=== PATIENT | female | born 1990 | race Caucasian/White ===

== ENCOUNTER 2019-01-12 21:23 | Emergency (ER) | payer OTHER, SELFPAY ==
[2019-01-12 21:28] VITALS: BP 130/70; PULSE 86; RESP 16; TEMP 36.7; O2SAT 100
--- NOTE | 2019-01-12 21:39 | W.ED.GENAD ---
Discharge Plan Disposition Patient Disposition: HOME Discharge Details Chief Complaint: Laceration Clinical Impression: Contusion of finger of right hand Primary Care Provider: Sharon,Local ED Provider: Wisam Nettles Home Meds and New Rx's Prescriptions: No Action buprenorphine-naloxone [Suboxone] 2-0.5 mg Film 1 film BUCCAL DAILY RF: 0 Discharge Instructions Additional Instructions: Please contact your primary care physician to arrange follow-up. Keep wound clean and dry and monitor for signs of infection including increased pain, redness, warmth, swelling or discharge. Please take ibuprofen over the counter. Take 600mg by mouth every 6 hours as needed for pain. Follow-up with orthopedics if you noticed any weakness or numbness in your thumb over the next 2 days. Return to the ER for any worsening or new concerning symptoms. Stand Alone Forms: Work Release Referrals: [facility] [Provider Group] Occupational Medicine [Outside] Medical Decision Making 28-year-old female here with injury to her right first digit, tender and swollen interphalangeal joint. Considered fracture. X-ray of the digit reviewed and interpreted by me: HPI General Mode of arrival: ambulatory. Date/Time Provider Initiated Documentation: 01/12/19 21:26. Limitations to Documentation: no limitations. Information obtained by: patient. HPI Narrative: 28-year-old female presents with chief complaint of thumb pain. Patient notes she shut a door on her thumb. This occurred just prior to arrival at work. Pain was initially severe and now thumb feels numb. No other injury. Related Data Home Medications Medication Instructions Recorded Confirmed buprenorphine-naloxone [Suboxone] 1 film BUCCAL DAILY 01/12/19 01/12/19 Allergies Allergy/AdvReac Type Severity Reaction Status Date / Time No Known Allergies Allergy Unverified 01/12/19 21:46 General Stated Complaint: Laceration KAITY: 4 Review of Systems Musculoskeletal Musculoskeletal: Reports as per HPI Neurologic Neurologic: Reports as per HPI [facility] Social History Smoking/Tobacco Use Status: Current every day Tobacco Type: cigarettes Alcohol Intake: current Alcohol Intake frequency: holidays/special occasions only Substance use type: marijuana Exam Const General: cooperative and no acute distress Skin General skin exam: ecchymosis (Minimal palmar surface first digit) Neuro General: alert, awake, oriented x3 and tone normal Extrem Right upper extremity: hand Details: normal capillary refill, neuromotor exam normal, neurosensory exam normal (Two-point discrimination intact) and tenderness Location: of the thumb Location: at the proximal phalanx and at the IP joint Course Vital Signs Vital signs: Vital Signs Temperature 36.7 C 01/12/19 21:28 Pulse 86 01/12/19 21:28 Respiratory Rate 16 01/12/19 21:28 Blood Pressure 130/70 01/12/19 21:28 Pulse Oximetry 100 01/12/19 21:28 Temperature 36.7 C 01/12/19 21:28 Temperature Source Skin 01/12/19 21:28 Pulse 86 01/12/19 21:28 Respiratory Rate 16 01/12/19 21:28 Respiratory Effort 01/12/19 21:28 Blood Pressure 130/70 01/12/19 21:28 Blood Pressure Position Sitting 01/12/19 21:28 Pulse Oximetry 100 01/12/19 21:28 Oxygen Delivery Method Room Air 01/12/19 21:28 Oxygen Flow Rate 0 01/12/19 21:28 Pain Level 0 01/12/19 21:28
--- NOTE | 2019-01-12 21:50 | DI.RAD_ITS ---
EXAM: XR THUMB RT INDICATION: pain, trauma. COMPARISON: No exams were available for comparison TECHNIQUE: 2D digital imaging was performed. FINDINGS: No fracture or dislocation is seen. IMPRESSION: Negative right thumb.
[2019-01-12] MEDS: Ibuprofen 600 MG TAB PO (22:05)
--- NOTE | 2019-01-12 22:06 | DI.VRAD_ITS ---
PROCEDURE INFORMATION: Exam: XR Right Finger(s) Exam date and time: 01/12/2019 9:54 PM Age: 28 years old Clinical history: Injury or trauma; Injury history: Thumb vs door hinge; Initial encounter; Crushing; Finger; Right; Injury date: 01/12/2019; Injury details: Caught in hinge of door TECHNIQUE: Imaging protocol: XR Right fingers. Views: Minimum 2 views. COMPARISON: No relevant prior studies available. FINDINGS: Bones/joints: There is no evidence of acute fracture.There is no evidence of malalignment or dislocation. Soft tissues: Normal. IMPRESSION: There is no evidence of acute fracture.There is no evidence of malalignment or dislocation. Dictated and Authenticated by: Flaca Pickens MD. Ordering:SHELIA Joel MD
[2019-01-12 22:47] VITALS: BP 137/72; PULSE 74; RESP 16; O2SAT 100
== END 2019-01-12 22:50 | disposition home or self-care (01) ==
PROVIDERS: Emergency Provider Student in an Organized Health Care Education/Training Program
DX: S60.011A Contusion of right thumb without damage to nail, initial encounter (principal); W23.0XXA Caught, crushed, jammed, or pinched between moving objects, initial encounter
CPT/HCPCS: 99283; 73140; 99282

== ENCOUNTER 2019-05-14 12:26 | Outpatient (REF) | payer MEDICAID, SELFPAY ==
--- NOTE | 2019-05-14 | PAPFT_PTH ---
PATIENT: Ana Ray LOC: [facility] U#:[id number] AGE/SX: 28/F ROOM: RE05/14/[address]: Dale Cespedes RN : 1990 BED: DIS: 05/14/2019 SPEC #: [id number] RECD: 05/14/19 16:48 STATUS: TRACEY RENabil #: [id number] CELINE: 05/14/19 00:[address]: Dale Cespedes DEPT: [facility] Cytology RECD BY: Sandi Lam ENTERED: 05/14/19 16:50 SP TYPE: PAPFT OT DR: Sharon Local Tissues: 1 - CX/ENDOCX FOR PAP SMEARS Procedures: PAP THIN PREP/UVM Screening HPV DNA PROBE Comments: [id number]
[2019-05-14 16:26] LABS: *AMPHETAMINES SCREEN URINE Negative (Negative); *BARBITURATES SCREEN URINE Negative (Negative); *BENZODIAZEPINES SCREEN URINE Negative (Negative); Cannabinoids THC Negative (Negative); Cocaine Screen,Urine Negative (Negative); METHADONE URINE SCREEN Negative (Negative); OPIATES URINE SCREEN Negative (Negative)
[2019-05-14 16:36] LABS: Tricyclic Antidepressants Negative (Negative)
[2019-05-15 16:00] LABS: Chlamydia Result Negative (Negative); GC Result Negative (Negative)
[2019-05-17 08:25] LABS: Buprenorphine 21.2 ng/mL
== END 2019-05-14 12:46 ==
LOC: LBN 12:26
PROVIDERS: Visit Provider Advanced Practice Midwife
DX: Z34.91 Encounter for supervision of normal pregnancy, unspecified, first trimester (principal); Z11.3 Encounter for screening for infections with a predominantly sexual mode of transmission; Z12.4 Encounter for screening for malignant neoplasm of cervix; R87.612 Low grade squamous intraepithelial lesion on cytologic smear of cervix (LGSIL)
CPT/HCPCS: 80307; 87077; 87491; 87591; 88142; 87086; 87186; 87624

== ENCOUNTER 2019-07-03 16:34 | Outpatient (REF) | payer MEDICAID, SELFPAY ==
[2019-07-03 18:31] LABS: Abs Immature Grans 0.04 k/cumm (0.0-0.09); Absolute Basophil Count 0.01 k/cumm (0.0-0.2); Absolute Eosinophil Count 0.11 k/cumm (0.0-0.7); Absolute Lymphocyte Count 1.88 k/cumm (1.2-3.4); Absolute Monocyte Count 0.63 k/cumm (0.11-0.7); Absolute Neutrophil Count 8.19 k/cumm (1.2-6.7); Basophils % 0.1; HCT 36.4 % (36.0-46.0); HGB 12.3 g/dL (12.0-15.5); Immature Grans % 0.4 %; Lymphocytes % 17.3; Mean Corp. HGB Concentration 33.8 g/dL (32.0-36.0); Mean Corpuscular Hemoglobin 29.4 pg (27.0-33.0); Mean Corpuscular Volume 86.9 fL (80-95); Mean Platelet Volume 10.7 fL (8.0-11.0); Monocytes % 5.8; Neutrophils % 75.4; Platelet Count 284 x1000/uL (130-400); RBC 4.19 m/cumm (4.00-5.20); White Blood Cell Count 10.86 k/cumm (4.4-10.8)
[2019-07-03 18:43] LABS: TSH (W/Ref FT4) 1.44 uIU/mL (0.36-3.74)
[2019-07-03 19:49] LABS: *AMPHETAMINES SCREEN URINE Negative (Negative); *BARBITURATES SCREEN URINE Negative (Negative); *BENZODIAZEPINES SCREEN URINE Negative (Negative); Cannabinoids THC Negative (Negative); Cocaine Screen,Urine Negative (Negative); METHADONE URINE SCREEN Negative (Negative); OPIATES URINE SCREEN Negative (Negative)
[2019-07-03 19:50] LABS: Tricyclic Antidepressants Negative (Negative)
[2019-07-05 09:54] LABS: HIV-1/2 Ag & Ab Screen Negative (Negative); Hepatitis B Surface Ag Negative (Negative)
[2019-07-05 10:07] LABS: Hepatitis C Ab w Rflx HCV PCR Negative (Negative)
[2019-07-05 10:21] LABS: Rubella IgG Ab (UVM) Positive (See Note); Varicella IgG Antibody Positive (See Note)
[2019-07-05 14:45] LABS: Syphilis Total Ab w/Reflex Nonreactive (Nonreactive)
[2019-07-06 10:19] LABS: Calculated age at EDD 28 years; GA used in risk estimate Dates estimate; INHIBIN 103 pg/mL; IVF Pregnancy No; Initial or repeat testing Initial testing; Insulin dependent diabetes No; Maternal Weight 154 lbs; Number of Fetuses 1; Physician Phone Number 802-748-7300; Prev Down(T21)/Trisomy Pregnan No; Prev Pregnancy w/NTD No; RECOMMENDED FOLLOW UP None.; Results Summary Normal risk; hCG, TOTAL 7.5 IU/mL; hCG, TOTAL MoM 0.36 MoM; uE3 1.68 ng/mL
[2019-07-11 17:54] LABS: Buprenorphine Negative; Norbuprenorphine Negative
== END 2019-07-03 16:54 ==
LOC: LBN 16:34
PROVIDERS: Advanced Practice Midwife; Visit Provider Advanced Practice Midwife
DX: Z34.92 Encounter for supervision of normal pregnancy, unspecified, second trimester (principal); Z3A.17 17 weeks gestation of pregnancy; F11.11 Opioid abuse, in remission; Z36.89 Encounter for other specified antenatal screening
CPT/HCPCS: 80307; 81511; 86787; 86803; 86850; 86900; 86901; 87340; 87389; 84443; 85025; 86762; 86780; 87086

== ENCOUNTER 2019-07-23 01:44 | Outpatient (CLI) | payer MEDICAID, SELFPAY ==
--- NOTE | 2019-07-23 07:15 | DI.US_ITS ---
EXAM: US OB 2-3 TRIMESTER CLINICAL HISTORY: routine pnc, z34.90 TECHNIQUE: Ultrasound performed using standard protocol. COMPARISON: No exams were available for comparison FINDINGS: Ob ultrasound was performed utilizing 2nd trimester protocol. biometry is consistent with gest ational age of 20 weeks 6 days and EDC of 12/04/2019 Placenta is anterior with no evidence of placenta previa. There is a normal quantity of amniotic flu id. cardiac rate is 152 BPM. anomaly screen is within normal limits as per the attached checklist. IMPRESSION: DATA REPOSITORY:
== END 2019-07-23 02:04 ==
PROVIDERS: Visit Provider Advanced Practice Midwife
DX: Z34.92 Encounter for supervision of normal pregnancy, unspecified, second trimester (principal); Z3A.20 20 weeks gestation of pregnancy
CPT/HCPCS: 76805

== ENCOUNTER 2019-07-31 16:19 | Outpatient (REF) | payer MEDICAID, SELFPAY ==
[2019-07-31 17:13] LABS: *AMPHETAMINES SCREEN URINE Negative (Negative); *BARBITURATES SCREEN URINE Negative (Negative); *BENZODIAZEPINES SCREEN URINE Negative (Negative); Cannabinoids THC Negative (Negative); Cocaine Screen,Urine Negative (Negative); METHADONE URINE SCREEN Negative (Negative); OPIATES URINE SCREEN Negative (Negative); Tricyclic Antidepressants Negative (Negative)
[2019-08-07 12:02] LABS: Buprenorphine Negative; Norbuprenorphine Negative
== END 2019-07-31 16:39 ==
LOC: LBN 16:19
PROVIDERS: Visit Provider Advanced Practice Midwife
DX: Z34.92 Encounter for supervision of normal pregnancy, unspecified, second trimester (principal); F11.11 Opioid abuse, in remission
CPT/HCPCS: 80307

== ENCOUNTER 2019-09-17 02:23 | Outpatient (CLI) | payer MEDICAID, SELFPAY ==
[2019-09-17 09:58] LABS: HCT 35.1 % (36.0-46.0); HGB 11.7 g/dL (12.0-15.5); Mean Corp. HGB Concentration 33.3 g/dL (32.0-36.0); Mean Corpuscular Hemoglobin 30.4 pg (27.0-33.0); Mean Corpuscular Volume 91.2 fL (80-95); Mean Platelet Volume 9.9 fL (8.0-11.0); Platelet Count 287 x1000/uL (130-400); RBC 3.85 m/cumm (4.00-5.20); RBC Distribution Width 13.4 % (11.7-14.6); White Blood Cell Count 13.74 k/cumm (4.4-10.8)
[2019-09-17 10:04] LABS: Glucose,1 Hr (Glucola) 107 mg/dL (80-140)
== END 2019-09-17 02:43 ==
PROVIDERS: Visit Provider Advanced Practice Midwife
DX: Z34.90 Encounter for supervision of normal pregnancy, unspecified, unspecified trimester (principal)
CPT/HCPCS: 36415; 82950; 85027

== ENCOUNTER 2019-10-16 16:04 | Outpatient (REF) | payer MEDICAID, SELFPAY ==
[2019-10-16 19:29] LABS: *AMPHETAMINES SCREEN URINE Negative (Negative); *BARBITURATES SCREEN URINE Negative (Negative); *BENZODIAZEPINES SCREEN URINE Negative (Negative); Cannabinoids THC Negative (Negative); Cocaine Screen,Urine Negative (Negative); METHADONE URINE SCREEN Negative (Negative); OPIATES URINE SCREEN Negative (Negative)
[2019-10-16 19:32] LABS: Tricyclic Antidepressants Negative (Negative)
[2019-10-20 12:29] LABS: Buprenorphine Negative
== END 2019-10-16 16:24 ==
LOC: LBN 16:04
PROVIDERS: Visit Provider Advanced Practice Midwife
DX: R30.0 Dysuria (principal); F11.11 Opioid abuse, in remission; Z34.90 Encounter for supervision of normal pregnancy, unspecified, unspecified trimester
CPT/HCPCS: 80307; 87086

== ENCOUNTER 2019-11-02 16:07 | Outpatient (REF) | payer MEDICAID, SELFPAY ==
[2019-11-02 17:35] LABS: *AMPHETAMINES SCREEN URINE Negative (Negative); *BARBITURATES SCREEN URINE Negative (Negative); *BENZODIAZEPINES SCREEN URINE Negative (Negative); Cannabinoids THC Negative (Negative); Cocaine Screen,Urine Negative (Negative); METHADONE URINE SCREEN Negative (Negative); OPIATES URINE SCREEN Negative (Negative); Tricyclic Antidepressants Negative (Negative)
[2019-11-08 11:05] LABS: Buprenorphine Negative
== END 2019-11-02 16:27 ==
LOC: LBN 16:07
PROVIDERS: Visit Provider Advanced Practice Midwife
DX: Z34.90 Encounter for supervision of normal pregnancy, unspecified, unspecified trimester (principal); F11.11 Opioid abuse, in remission
CPT/HCPCS: 80307

== ENCOUNTER 2019-11-20 00:54 | Outpatient (CLI) | payer MEDICAID, SELFPAY ==
--- NOTE | 2019-11-20 07:00 | DI.US_ITS ---
EXAM: US OB DYLON WEIGHT CLINICAL HISTORY: S>D, excessive weight gain,O26.843. TECHNIQUE: Transabdominal obstetrical ultrasound performed. COMPARISON: US US OB 2-3 TRIMESTER from 07/23/2019 FINDINGS:: Number of fetuses: One. position: Vertex. Placental location: Anterior. No evidence of previa. BIOMETRIC DATA: BPD: 90mm = 36+ 3 weeks HC: 324 mm = 36+ 5 weeks AC: 344mm = 38+ 2 weeks FL: 75 mm = 38+ 2 weeks EFW: 3330 Gms = 68% Composite Age: 37+ 3 EDC: 08 December 2019 Heart Rate: 135BPM Amniotic fluid index: 10.4 cm. Amount of fluid is within normal limits. IMPRESSION: size and weight are within the expected range. DATA REPOSITORY:
== END 2019-11-20 01:14 ==
PROVIDERS: Visit Provider Advanced Practice Midwife
DX: O26.843 Uterine size-date discrepancy, third trimester (principal)
CPT/HCPCS: 76816

== ENCOUNTER 2019-11-20 10:21 | Outpatient (REF) | payer MEDICAID, SELFPAY ==
[2019-11-20 12:25] LABS: *AMPHETAMINES SCREEN URINE Negative (Negative); *BARBITURATES SCREEN URINE Negative (Negative); *BENZODIAZEPINES SCREEN URINE Negative (Negative); Cannabinoids THC Negative (Negative); Cocaine Screen,Urine Negative (Negative); METHADONE URINE SCREEN Negative (Negative); OPIATES URINE SCREEN Negative (Negative)
[2019-11-20 12:28] LABS: Tricyclic Antidepressants Negative (Negative)
[2019-11-23 11:58] LABS: Buprenorphine Negative
== END 2019-11-20 10:41 ==
LOC: LBN 10:21
PROVIDERS: Visit Provider Advanced Practice Midwife
DX: Z34.93 Encounter for supervision of normal pregnancy, unspecified, third trimester (principal); Z3A.36 36 weeks gestation of pregnancy; Z36.85 Encounter for antenatal screening for Streptococcus B
CPT/HCPCS: 80307; 87081

== ENCOUNTER 2019-12-07 13:23 | Outpatient (CLI) | payer MEDICAID, SELFPAY ==
[2019-12-07 13:31] VITALS: BP 118/73; PULSE 88; TEMP 37
[2019-12-07 13:55] VITALS: BP 118/73; PULSE 88
--- NOTE | 2019-12-07 13:58 | W.OBNST ---
Date of service: 12/07/19 Time of Service: 13:59 NST Evaluation Reason for NST Reasons for Nonstress Test: DECREASED MOVEMENT Gestational Age Gestational Age in Weeks and Days: 39 Weeks and 3Days Test and Monitor Explained Test/Monitor Explained: Test Explained, Monitor Explained and Patient Verbalized Understanding Vital Signs Blood Pressure: 118/73 Pulse: 88 Temperature: 98.6 F NST Information Date on Monitor: 12/07/19 Time on Monitor: 13:36 Date off Monitor: 12/07/19 Time off Monitor: 13:56 Total Time on Monitor: 20 NST Interventions: PO Hydration NST Evaluation Patient States Movement: Present Variability: Moderate 6-25 bpm Accelerations: 15x15 NST Results: Reactive Note NST Note Note: Good movement reported by patient. Contractions not felt by patient. Signs of labor reviewed as well as normal movement NST Reviewed and Verified by: Cookie Dent
[2019-12-07 14:00] VITALS: BP 118/73; PULSE 88; TEMP 37
== END 2019-12-07 14:00 | disposition home or self-care (01) ==
LOC: BCD 13:24 → OBS 13:30
PROVIDERS: Visit Provider Advanced Practice Midwife
DX: O36.8130 Decreased fetal movements, third trimester, not applicable or unspecified (principal); Z3A.39 39 weeks gestation of pregnancy
CPT/HCPCS: 59025

== ENCOUNTER 2019-12-10 20:35 | Observation (INO) | payer MEDICAID, SELFPAY ==
[2019-12-10 21:22] VITALS: BP 145/74; PULSE 102
[2019-12-10 21:30] VITALS: BP 145/74; PULSE 102; RESP 18; TEMP 36.6
--- NOTE | 2019-12-10 21:31 | W.PM.OBHPL1 ---
Date of service: 12/10/19 Time of Service: 21:31 Assessment and Plan Assessment and plan (1) 40 weeks gestation of : Status: Acute Assessment and plan: 29 yo G1, normotensive, afebrile category 1 tracing latent phase/early labor, intact membranes cvx 3/90% posterior and soft, vtx -2 pt appears to be coping well with labor, is relaxed, laughing, cheerful, conversational accompanied by FOB for support Rh+, Rubella and Varicella Immune, GBS+ Shoulder dystocia risk consistent with primip status PPH risk is not elevated EFW @ 36 wk sono 68th percentile Pt discontinued suboxone in early , UDS have been negative P: discussed early labor management options with pt will recheck cvx in 2 hrs ambulate and PO intake as pt desires if no cvx change will consider discharge to home, possible medication for rest if cvx changes significantly will then admit and begin GBS prophylaxis OB-HPI Labor/Delivery History of Present Illness Reason for Visit: TERM RULE OUT LABOR Chief Complaint: Uterine Contractions. LUCRECIA Calculator Estimated Delivery Date Method Current WG Current Estimate 12/11/19 LMP (Certain) 39w 6d Other Estimates 12/07/19 Ultrasound #1 40w 3d Comments: 29 yo G1 @ 40 wks reports menstrual-like contractions beginning at 1400 today that were every 10 minutes or so. Gradually through the evening they seem to be getting longer, stronger and are now about every 7 minutes. Had some pink tinged mucous earlier today, denies nausea or vomiting, no ROM, no diarrhea, states she has been able to tolerate PO intake well. History of Present Expected Delivery Route/Plan - CNM FOB/boyfriend - Edson Logan (his 2nd child, doesn't have custody) BB yes to circ GBS POSITIVE - PCN Prophylaxis desires to use the tub for labor. She would also like to try nitrous. Specific Issues/Plan 1. Declines mtg. with Cassidy HOGUE & Tanner in r/t to her current use of suboxone. 1a. Met w/SARMAD HOGUE via phone 06/04/19 2. Needs to join MAT program for care home opiate dependence 2a. Telehealth visit with SARMAD OHGUE 06/27/19: is calling [facility] to establish MAT 2b. Pt states she took herself off suboxone early June, declines MAT program 07/02 2c. Interested in anti-depressant medication at end of to prevent PPD 2d. UDS with every visit, including bup 3. Pap/HPV : LGSIL/+ as per Dr. Malin repeat pap pp. al 4. Pt desires TL, will have 30 wk consent appt w/ 5. 07/06/19: Ucx ankita neg. l.m. to inform pt of same. al 6. QM : low risk .al 7. History of depression and ADHD 8. spotting in second trimester - consider US at 32 weeks for growth. 8a. TWG 60 lbs, sono @ 36 wks for EFW/DYLON 9. Carpal Tunnel symptoms. Assessment: History Reviewed & Current Review of Systems All systems reviewed & are unremarkable except as noted in HPI and below Constitutional Constitutional: Reports as per HPI Gastrointestinal Gastrointestinal: Reports as per HPI and Reports system reviewed and no additional complaints, except as documented Comments: lower abd cramps PFSH Medical History (Updated 12/10/19 @ 22:01 by Fannie Archuleta) 17 weeks gestation of ADHD History of drug dependence/abuse LGSIL of cervix of undetermined significance Opioid abuse Currently dosing daily with 1mg suboxone that she buys off street Size of fetus inconsistent with dates in third trimester Family History (Updated 05/14/19 @ 10:48 by Dale Cespedes CNM) Paternal Grandfather H/O heart artery stent Paternal Grandmother Hypertension Maternal Grandfather Heart disease Maternal Grandmother Alcohol abuse @ 54 Social History (Updated 05/14/19 @ 10:49 by Dale Cespedes CNM) Smoking/Tobacco Use Status: Current every day Tobacco Type: cigarettes Tobacco: How many years used: 4 Quit status: considering quitting Alcohol Intake: former Details: stopped w/ knowledge of . Substance use type: marijuana Female Reproductive History Menstrual Age of Menarche: 12 control method: none History History 1 Para 0 Hx # Term Pregnancies 0 Multiple births 0 Hx # Pregnancies 0 Ectopic pregnancies 0 AB induced 0 Hx Number of Living Children 0 AB spontaneous 0 Meds Home Medications and Allergies Home Medications Medication Instructions Recorded Confirmed Type clotrimazole 1 % topical cream 1 applic TOPICAL TID #28 g 11/20/19 11/28/19 Rx ferrous sulfate 325 mg (65 mg 325 mg PO DAILY #60 tab 11/20/19 11/28/19 Rx iron) tablet vitamin with calcium 1 tab PO DAILY #90 tab 11/20/19 11/28/19 Rx no.72-iron 27 mg-folic acid 1 mg tablet Allergies Allergy/AdvReac Type Severity Reaction Status Date / Time No Known Allergies Allergy Unverified 12/07/19 12:57 Exam Physical Exam Vital signs: Pulse BP 102 H 145/74 H 12/10/19 21:22 12/10/19 21:22 Detailed Labor and Delivery Exam Dilation: 3 Effacement (%): 90 station: -2 Cervix position: posterior Consistency: soft Bains Score: Cervical Points Exam 0 1 2 3 Dilation Closed 1-2cm 3-4 cm 5-6cm Effacement 0-30% 40-50% 60-70% 80% Consistency Firm Medium Soft Station -3 -2 -1,0 +1,+2 Position Posterior Mid Anterior BAINS Score(Cervical Ripeness Score): 8 Amniotic Membrane Status: Intact Monitor Mode: External Contraction Frequency(min): q 5-7 minutes Contraction Duration(sec): 60 Contraction Intensity: Mild Fetus A Heart Rate Baseline: 135 Monitor Accelerations: Present Monitor Decelerations: None Variability: Moderate (6-25 BPM) Presentation: Cephalic Categories: Category I Est. Weight: 8 lb 6.041 oz Est. Weight: 3800 gms HEENT Exam HEENT Exam: Normal Chest/Brest/Axilla Exam Chest Exam: Normal Respiratory Exam Respiratory Exam: Normal Cardiovascular Exam Cardiovascular Exam: Normal Abdominal Exam Abdominal Exam: Normal (Gravid) Exam Exam: Normal Extremities Exam Extremities Exam: Normal Detailed Back/Spine/Pelvis Exam Back/Spine: Present full ROM Skin Exam Skin Exam: Normal Psychiatric Exam Psychiatric Exam: Normal Results Results Group Beta Strep: Positive Blood Type: O+ Rubella Status: Immune Varicella Immunity: Immune Risk Assessment Risk for Shoulder Dystocia Historical/Initial OB: NEGATIVE FOR: Pelvic Abnormality, Pre- BMI>30, Previous Shoulder Dystocia or Previous Macrosomia 40 Weeks: NEGATIVE FOR: EFW> 4500 gms, Maternal Weight Gain >40lb or Post Dates Increased Risk?: No Counseling: low risk 05/14/19 al Date/Initial: low risk 05/14/19 al Delivery Plan @ 36wks: EFW in 68th percentile, plan spont labor and Risk for Pre-Eclampsia Daily Dose ASA Indicated: No Date Initiated/Initials: 05/14/19 al Yes, if one or more: NEGATIVE FOR: Hx Pre-E/Gest HTN, Chronic HTN, Multiple Gestation, Pre-gestational DM, Renal Disease, Systemic Lupus or APA Syndrome Yes, if 2 or more: POSITIVE FOR: Nulliparity; NEGATIVE FOR: Age>= 35 yrs, >10yr btwn pregnancies, BMI>30, ethinicty, Mother/Sister w/ Pre-E or Previous IUGR Risk for Post- Hemorrhage Initial: NEGATIVE FOR: Multiple Gestation, Previous PPH, Known Clotting Deficiency, Grand Multiparity or Anticoagulation At Risk?: No (@ iob 05/14/19 al) Risks Reviewed Risks Reviewed Upon Admission: Yes
[2019-12-10 21:35] VITALS: BP 145/74; PULSE 102; TEMP 36.9
[2019-12-10 22:10] VITALS: BP 145/74; PULSE 102; TEMP 36.9
--- NOTE | 2019-12-10 22:10 | W.OBNST ---
Date of service: 12/10/19 Time of Service: 22:10 NST Evaluation Reason for NST Reasons for Nonstress Test: FALSE LABOR Gestational Age Gestational Age in Weeks and Days: 39 Weeks and 6Days Test and Monitor Explained Test/Monitor Explained: Test Explained, Monitor Explained and Patient Verbalized Understanding Vital Signs Blood Pressure: 145/74 Pulse: 102 Temperature: 98.4 F Urine Results Urine Protein: Negative Urine Ketones: Negative Urine Glucose: Negative Urine Blood: Negative NST Information Date on Monitor: 12/10/19 Time on Monitor: 21:20 Date off Monitor: 12/10/19 Time off Monitor: 21:48 Total Time on Monitor: 28 NST Interventions: None NST Evaluation Patient States Movement: Present Variability: Moderate 6-25 bpm Accelerations: 15x15 Decelerations: None NST Results: Reactive Note NST Note NST Reviewed and Verified by: Fannie Archuleta
[2019-12-11 00:07] VITALS: BP 130/72; PULSE 104
--- NOTE | 2019-12-11 00:30 | DSE_ITS ---
Date of service: 12/11/19 Time of Service: 00:30 DS: Diagnosis Discharge Diagnosis (1) 40 weeks gestation of : Status: Acute (2) False labor after 37 completed weeks of gestation: Status: Acute Asessment and Plan: Minimal cvx change after 2-3 hrs observation (now 3- 4/90% posterior vtx -2), pt states her contractions are becoming somewhat more painful in lower abd, she is tired and doesn't want to move around much due to hip discomfort, reports feeling hungry, lives close to hospital. EFM category 1 with mild contractions q 5-7 minutes. Options discussed, recommended to pt she consider taking medication for rest and attempt to sleep at home, sx of active labor reviewed and pt verbalizes understanding and agreement with plan of care, will call and return to unit when labor becomes active, bleeding, or ROM. A: prodromal labor, primipara P: Vistaril 100 mg PO Discharge to home Call and return prn and for active labor Discharge Plan Disposition Patient Disposition: HOME Condition: Good Discharge Details Reason For Visit: TERM RULE OUT LABOR Admit Date/Time: 12/10/19 20:35 Admit Provider: Cookie Dent Attending Provider: Cookie Dent Primary Care Provider: None,None Hospital Course Hospital Course: observed for active labor for 2-3 hrs, discharged home Home Meds and New Rx's Prescriptions: No Action PrePlus 27 mg iron- 1 mg tablet 1 tab PO DAILY Qty: 90 RF: 3 ferrous sulfate 325 mg (65 mg iron) tablet 325 mg PO DAILY Qty: 60 RF: 0 clotrimazole [Lotrimin AF (clotrimazole)] 1 % cream 1 applic topical TID Qty: 28 RF: 0 Discharge Instructions Stand Alone Forms: Center Observation Activity:: Activity as Tolerated Equipment/Supplies:: No Equipment Needed Diet:: Normal Diet Discharge Orders Discharge Orders: Discharge Order (Routine); Ordered 12/11/19 Ordered By: Fannie Archuleta OB:DS Summary Contraception Discussed Contraception Discussed: No, Status at Discharge Functional status at discharge: independent ambulation Overall status at discharge: patient is back to baseline Mental Status: mental status grossly normal Speech and Movement: speech and movement normal Mood: congruent mood Affect: normal affect Time Spent with Patient providing and/or coordinating discharge services: Greater than 30 minutes Exam Physical Exam Vital signs: Temp Pulse Resp BP 97.9 F 104 H 18 130/72 12/10/19 21:30 12/11/19 00:07 12/10/19 21:30 12/11/19 00:07 [facility] Medical History (Updated 12/11/19 @ 00:31 by Fannie Archuleta) 17 weeks gestation of ADHD History of drug dependence/abuse LGSIL of cervix of undetermined significance Opioid abuse Currently dosing daily with 1mg suboxone that she buys off street Size of fetus inconsistent with dates in third trimester Family History (Updated 05/14/19 @ 10:48 by Dale Cespedes CNM) Paternal Grandfather H/O heart artery stent Paternal Grandmother Hypertension Maternal Grandfather Heart disease Maternal Grandmother Alcohol abuse @ 54 Social History (Updated 05/14/19 @ 10:49 by Dale Cespedes CNM) Smoking/Tobacco Use Status: Current every day Tobacco Type: cigarettes Tobacco: How many years used: 4 Quit status: considering quitting Alcohol Intake: former Details: stopped w/ knowledge of . Substance use type: marijuana Female Reproductive History Menstrual Age of Menarche: 12 control method: none History History 1 Para 0 Hx # Term Pregnancies 0 Multiple births 0 Hx # Pregnancies 0 Ectopic pregnancies 0 AB induced 0 Hx Number of Living Children 0 AB spontaneous 0 DS: Data Vitals/I&O Vitals and I&O: Vital Signs Temperature 97.9 F 12/10/19 21:30 Pulse 104 H 12/11/19 00:07 Pulse Rhythm Regular 12/10/19 21:30 Respiratory Rate 18 12/10/19 21:30 Blood Pressure 130/72 12/11/19 00:07 Oxygen Delivery Method Room Air 12/10/19 21:30 Oxygen Flow Rate 0 12/10/19 21:30 Pain Level 3 12/10/19 21:30 Intake & Output 12/10/19 12/10/19 12/11/19 11:59 23:59 11:59 Weight 214 lb 15.211 oz Other: Urine Color Pale Data Completed and Pending Labs on day of discharge: Labs from last 24 hours 12/10/19 12/10/19 20:35 20:35 WBC Cancelled RBC Cancelled Hgb Cancelled Hct Cancelled MCV Cancelled MCH Cancelled MCHC Cancelled RDW Cancelled Plt Count Cancelled MPV Cancelled Patient ABO/Rh Cancelled
[2019-12-11] MEDS: hydrOXYzine PAMOATE 25 MG CAP 100 MG PO (00:38)
== END 2019-12-11 00:45 | disposition home or self-care (01) ==
PROVIDERS: Admitting Provider Advanced Practice Midwife; Visit Provider Advanced Practice Midwife
DX: O47.1 False labor at or after 37 completed weeks of gestation (principal); Z3A.40 40 weeks gestation of pregnancy; O99.820 Streptococcus B carrier state complicating pregnancy
CPT/HCPCS: 59025; 85027; 86900; 86901; G0378

== ENCOUNTER 2019-12-11 08:25 | Inpatient (IN) | payer MEDICAID, SELFPAY ==
[2019-12-11] VITALS (15 sets, daily range): BP systolic 117–141; BP diastolic 66–87; PULSE 92–120; RESP 16; TEMP 36.8–37.5
[2019-12-11] MEDS: Lactated Ringers 500 ML IV (09:45)
--- NOTE | 2019-12-11 09:47 | W.PM.OBHPL1 ---
Date of service: 12/11/19 Time of Service: 09:47 Assessment and Plan Assessment and plan (1) Prolonged latent phase of labor: Status: Acute Assessment and plan: Admit to Center. Comfort measures. Nitrous oxide offered for pain with SVE. Option of expectant management vs. therapeutic rest offered to Ana. She prefers to try therapeutic rest. I.V. hydration recommended as well as Morphine and vistaril for therapeutic rest. Ana agrees with this plan. Covid- 19 test. Anticipate . OB-HPI Labor/Delivery History of Present Illness Reason for Visit: TERM LABOR Chief Complaint: Uterine Contractions; Other (fatigue). LUCRECIA Calculator Estimated Delivery Date Method Current WG Current Estimate 12/11/19 LMP (Certain) 40w 0d Other Estimates 12/07/19 Ultrasound #1 40w 4d Comments: Ana was admitted to observation last evening for rule out labor. She returned home and took vistaril 100 mg PO for therapeutic rest. Ana said she did not sleep well and woke up about every 10 minutes with conractions. She is very tired. She has been sipping water. History of Present Expected Delivery Route/Plan - CNM FOB/boyfriend - Edson Logan (his 2nd child, doesn't have custody) BB yes to circ GBS POSITIVE - PCN Prophylaxis desires to use the tub for labor. She would also like to try nitrous. Specific Issues/Plan 1. Declines mtg. with [facility] in r/t to her current use of suboxone. 1a. Met w/SARMAD Lefty via phone 06/04/19 2. 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 Telehealth visit with [facility] 06/27/19: is calling [facility] to establish MAT 2b. Pt states she took herself off suboxone early June, declines MAT program 07/02 2c. Interested in anti-depressant medication at end of to prevent PPD 2d. UDS with every visit, including bup 3. Pap/HPV : LGSIL/+ as per Dr. Malin repeat pap pp. al 4. Pt desires TL, will have 30 wk consent appt w/ 5. 07/06/19: Ucx ankita neg. l.m. to inform pt of same. al 6. QM : low risk .al 7. History of depression and ADHD 8. spotting in second trimester - consider US at 32 weeks for growth. 8a. TWG 60 lbs, sono @ 36 wks for EFW/DYLON 9. Carpal Tunnel symptoms. [facility] Medical History (Updated 12/11/19 @ 09:54 by Cookie Dent CNM) 17 weeks gestation of ADHD History of drug dependence/abuse LGSIL of cervix of undetermined significance Opioid abuse Currently dosing daily with 1mg suboxone that she buys off street Size of fetus inconsistent with dates in third trimester Family History (Updated 05/14/19 @ 10:48 by Dale Cespedes CNM) Paternal Grandfather H/O heart artery stent Paternal Grandmother Hypertension Maternal Grandfather Heart disease Maternal Grandmother Alcohol abuse @ 54 Social History (Updated 05/14/19 @ 10:49 by Dale Cespedes CNM) Smoking/Tobacco Use Status: Former Tobacco Use Tobacco: How many years used: 4 Quit status: considering quitting Alcohol Intake: former Details: stopped w/ knowledge of . Substance use type: marijuana Female Reproductive History Menstrual Age of Menarche: 12 control method: none History History 1 Para 0 Hx # Term Pregnancies 0 Multiple births 0 Hx # Pregnancies 0 Ectopic pregnancies 0 AB induced 0 Hx Number of Living Children 0 AB spontaneous 0 Meds Home Medications and Allergies Home Medications Medication Instructions Recorded Confirmed Type clotrimazole 1 % topical cream 1 applic TOPICAL TID #28 g 11/20/19 11/28/19 Rx ferrous sulfate 325 mg (65 mg 325 mg PO DAILY #60 tab 11/20/19 11/28/19 Rx iron) tablet vitamin with calcium 1 tab PO DAILY #90 tab 11/20/19 11/28/19 Rx no.72-iron 27 mg-folic acid 1 mg tablet Allergies Allergy/AdvReac Type Severity Reaction Status Date / Time No Known Allergies Allergy Unverified 12/07/19 12:57 Exam Physical Exam Vital signs: Temp Pulse Resp BP 99.5 F 109 H 16 125/79 12/11/19 09:02 12/11/19 09:02 12/11/19 09:02 12/11/19 09:02 Vital Signs Reviewed: Yes Constitutional Constitutional: mild distress Detailed Labor and Delivery Exam Dilation: 2 Effacement (%): 80 station: +1 Cervix position: posterior Consistency: soft Herndon Score: Cervical Points Exam 0 1 2 3 Dilation Closed 1-2cm 3-4 cm 5-6cm Effacement 0-30% 40-50% 60-70% 80% Consistency Firm Medium Soft Station -3 -2 -1,0 +1,+2 Position Posterior Mid Anterior Amniotic Membrane Status: Intact Monitor Mode: External Contraction Frequency(min): Q 4-6 Contraction Duration(sec): 50-70 Contraction Intensity: Mild/Moderate Fetus A Heart Rate Baseline: 150 Monitor Accelerations: 15 X 15 Monitor Decelerations: None Variability: Moderate (6-25 BPM) Presentation: Cephalic Categories: Category I Est. Weight: 7 lb Respiratory Exam Respiratory Exam: Normal Cardiovascular Exam Cardiovascular Exam: Normal Abdominal Exam Abdominal Exam: Normal Exam Exam: Normal (dark bloody show) Back/Spine/Pelvis Exam Back Exam: Normal Skin Exam Skin Exam: Normal Psychiatric Exam Psychiatric Exam: Normal Results Results Group Beta Strep: Positive Blood Type: O+ Rubella Status: Immune Varicella Immunity: Immune Risk Assessment Risk for Shoulder Dystocia Historical/Initial OB: NEGATIVE FOR: Pelvic Abnormality, Pre- BMI>30, Previous Shoulder Dystocia or Previous Macrosomia 40 Weeks: POSTIVE FOR: Maternal Weight Gain >40lb; NEGATIVE FOR: EFW> 4500 gms or Post Dates Increased Risk?: Yes Counseling: low risk 05/14/19 al Date/Initial: low risk 05/14/19 al Delivery Plan @ 36wks: EFW in 68th percentile, plan spont labor and Risk for Pre-Eclampsia Daily Dose ASA Indicated: No Date Initiated/Initials: 05/14/19 al Yes, if one or more: NEGATIVE FOR: Hx Pre-E/Gest HTN, Chronic HTN, Multiple Gestation, Pre-gestational DM, Renal Disease, Systemic Lupus or APA Syndrome Yes, if 2 or more: POSITIVE FOR: Nulliparity; NEGATIVE FOR: Age>= 35 yrs, >10yr btwn pregnancies, BMI>30, ethinicty, Mother/Sister w/ Pre-E or Previous IUGR Risk for Post- Hemorrhage Initial: NEGATIVE FOR: Multiple Gestation, Previous PPH, Known Clotting Deficiency, Grand Multiparity or Anticoagulation At Risk?: No (@ iob 05/14/19 al) Risks Reviewed Risks Reviewed Upon Admission: Yes (Risk of shoulder dystociaadjusted D/T weight gain over 40 lbs. in )
[2019-12-11 09:56] LABS: HCT 36.5 % (36.0-46.0); HGB 11.9 g/dL (11.2-15.7); MCH 29.6 pg (27.0-33.0); MCHC 32.6 % (32.0-36.0); MCV 90.8 fL (80-95); MPV 10.7 fL (8.0-11.0); Platelet Count 264 10^3/uL (130-400); RBC 4.02 10^6/uL (3.93-5.22); RDW 13.7 % (11.7-14.6); RDW-SD 44.6 fL; WBC 13.78 10^3/uL (4.4-10.8)
[2019-12-11] MEDS: hydrOXYzine PAMOATE 25 MG CAP 50 MG PO (12:24)
[2019-12-11] MEDS: MORPHine 10 MG/ML VIAL IM (12:32)
--- NOTE | 2019-12-11 14:53 | W.PM.OBNL1 ---
Date of service: 12/11/19 Time of Service: 14:53 Informed Consent Informed Consent: Other (therapeutic rest for prodromal labor) Pelvic Exam Dilation: 3 Effacement (%): 90 station: +1 Cervix Position: posterior Consistency: soft Vaginal Exam Presentation: Cephalic Pooling: Negative Contractions Monitor Mode: External Contraction Frequency(min): Q3-6 Intensity: Mild/Moderate Fetus A Monitor: External (US) Heart Rate Baseline: 150 Presentation: Cephalic Variability: Moderate (6-25 BPM) Categories: Category I FHR Rhythm: Regular Characteristics: Normal Accelerations: 15 X 15 Decelerations: None Assessment and Plan Assessment and plan (1) Prolonged latent phase of labor: Status: Acute Assessment and plan: Coping well with contractions. Category 1 tracing. Comfort measures provided. Anticipate Objective Abnormal lab results 12/11/19 Range/Units 09:45 WBC 13.78 H (4.4-10.8) 10^3/uL Temp Pulse Resp BP 99.5 F 109 H 16 125/79 12/11/19 09:02 12/11/19 09:02 12/11/19 09:02 12/11/19 09:02 Laboratory Results WBC 13.78 10^3/uL (4.4-10.8) H 12/11/19 09:45 RBC 4.02 10^6/uL (3.93-5.22) 12/11/19 09:45 Hgb 11.9 g/dL (11.2-15.7) 12/11/19 09:45 Hct 36.5 % (36.0-46.0) 12/11/19 09:45 MCV 90.8 fL (80-95) 12/11/19 09:45 MCH 29.6 pg (27.0-33.0) 12/11/19 09:45 MCHC 32.6 % (32.0-36.0) 12/11/19 09:45 RDW 13.7 % (11.7-14.6) 12/11/19 09:45 Plt Count 264 10^3/uL (130-400) 12/11/19 09:45 MPV 10.7 fL (8.0-11.0) 12/11/19 09:45 Patient ABO/Rh O Positive 12/11/19 09:45 Antibody Screen Negative 12/11/19 09:45 Vital Signs Reviewed: Yes Subjective Patient Reports: No new Complaints Interval history since last seen: Morphine and vistaril were ordered this morning for therapeutic rest. I checked on the patient at 12:00 and she was awake sitting up in bed and starting to eat her lunch and using nitrous oxide. She had not been given the medication for therapeutic rest. I re-examined her and her cervix was 3 cms/90 % and her contractions were irregular in intensity. Ana did express a desire to get some rest and I asked for the RN to give the MOrphne and vistaril as ordered. It was given at 1300. At 1400, Ana was awake and continuing to use nitrous oxide. I turned the lights down and encouraged her to try to take a nap. She got up to the bathroom and passed some of her mucus plug. Will reassess when she awakes or in 2 hours if she is unable to sleep. Results Hemoglobin/Hematocrit: Hgb 11.9 g/dL (11.2-15.7) 12/11/19 09:45 Hct 36.5 % (36.0-46.0) 12/11/19 09:45 Abnormal Lab Findings: Abnormal Labs 12/11/19 09:45 WBC 13.78 H
[2019-12-11] MEDS: Penicillin G POT. 5,000,000 UNITS in Normal Saline 100 ML 200 UNITS IVPB (17:05)
--- NOTE | 2019-12-11 17:20 | PGE_ITS ---
Date of service: 12/11/19 Time of Service: 17:20 Informed Consent Informed Consent: Risk,Benefits,Alternatives Discussed and Other (discussed pain management options, prodromal vs active labor) Pelvic Exam Dilation: 4 Effacement (%): 100 station: -2 Cervix Position: mid Consistency: soft Vaginal Exam Presentation: Cephalic Comments: Intact membranes, brown and blood tinged mucous plug noted at vaginal exam Contractions Monitor Mode: External Contraction Frequency(min): every 2-4 minutes Contraction Duration(sec): 60-90 seconds Intensity: Mild/Moderate Fetus A Monitor: External (US) Heart Rate Baseline: 140 Presentation: Cephalic Variability: Moderate (6-25 BPM) Categories: Category I FHR Rhythm: Regular Characteristics: Normal Accelerations: 15 X 15 Decelerations: None Amniotic Membrane Status: Intact Assessment Note: category 1 tracing Assessment and Plan Assessment and plan (1) Prolonged latent phase of labor: Status: Acute Assessment and plan: A: G1 @ 40 wks, GBS+, prodromal for 24 hrs now becoming more active P: Begin PCN Prophylaxis via IV Give an additional 500 ml LR for hydration Pt desires to labor in the tub and use nitrous for next 2 hours Will recheck cvx in 3-4 hours, consider AROM if not making progress REWINDER OPERATOR HELPER notified of pt plan for epidural, likely tonight Anticipate tonight/tomorrow, Dr. Henderson is OB information resources manager. (2) 40 weeks gestation of : Status: Acute Objective Abnormal lab results 12/11/19 Range/Units 09:45 WBC 13.78 H (4.4-10.8) 10^3/uL Temp Pulse Resp BP 99.5 F 120 H 16 129/77 12/11/19 09:02 12/11/19 16:41 12/11/19 09:02 12/11/19 16:41 Laboratory Results WBC 13.78 10^3/uL (4.4-10.8) H 12/11/19 09:45 RBC 4.02 10^6/uL (3.93-5.22) 12/11/19 09:45 Hgb 11.9 g/dL (11.2-15.7) 12/11/19 09:45 Hct 36.5 % (36.0-46.0) 12/11/19 09:45 MCV 90.8 fL (80-95) 12/11/19 09:45 MCH 29.6 pg (27.0-33.0) 12/11/19 09:45 MCHC 32.6 % (32.0-36.0) 12/11/19 09:45 RDW 13.7 % (11.7-14.6) 12/11/19 09:45 Plt Count 264 10^3/uL (130-400) 12/11/19 09:45 MPV 10.7 fL (8.0-11.0) 12/11/19 09:45 Patient ABO/Rh O Positive 12/11/19 09:45 Antibody Screen Negative 12/11/19 09:45 Vital Signs Reviewed: Yes Objective Narrative Objective Narrative: Assuming care of pt at 1600: Pt was admitted this morning after observation for labor the previous night with pt going home on medication for rest. Pt presented this morning expressing fatigue and poor sleep, cervix remained unchanged from last exam at 0100, was given additional medication for therapeutic rest this afternoon. EFM is category 1, membranes intact, pt afebrile and normotensive, EFW 3800 gms, adequate pelvis, Coping quite well with contractions, COVID swab pending. SVE now 4/100% soft and moving midline, vtx -2, intact membranes Pt has been tolerating PO intake well but states she is thirsty. IVF of LR, 500 ml was bolused earlier today Subjective Interval history since last seen: Pt states she is feeling increasingly painful contractions, is using nitrous during each contraction. She was given IM morphine 10 mg with 50 mg Vistaril PO @ 1300 and did get some sleep between contractions but now is not feeling sleepy. Pt states her wishes are to have an epidural but to delay anesthesia until labor is well established, desires to soak in the tub and use nitrous until her dilation is more advanced. Results Hemoglobin/Hematocrit: Hgb 11.9 g/dL (11.2-15.7) 12/11/19 09:45 Hct 36.5 % (36.0-46.0) 12/11/19 09:45 Abnormal Lab Findings: Abnormal Labs 12/11/19:45 WBC 13.78 H
[2019-12-11] MEDS: Lactated Ringers 1,000 ML 150 ML IV ×2 (18:00→22:37)
--- NOTE | 2019-12-11 20:29 | W.PM.OBNL1 ---
Date of service: 12/11/19 Time of Service: 20:32 Informed Consent Informed Consent: Regional Anesthesia Assessment and Plan Assessment and plan (1) Prolonged latent phase of labor: Status: Acute Assessment and plan: A: G1 @ 40 wks now in active labor Category 1 tracing, contractions q 2-3 minutes P: Epidural anesthesia requested Objective Vital Signs Reviewed: Yes Objective Narrative Objective Narrative: Pt soaked in tub for about an hour but became too hot, went to rest in bed and continued use of nitrous until she felt the contractions became much stronger Pt moved to non-tub room upon request for epidural, bolus IVF begun and EFM applied, UTILITY SYSTEM REPAIRER paged. SVE deferred until pt is more comfortable Subjective Patient Reports: New Complaints Interval history since last seen: Pt states contractions are now constant, desires epidural Interventions Pain Management Results Hemoglobin/Hematocrit: Hgb 11.9 g/dL (11.2-15.7) 12/11/19 09:45 Hct 36.5 % (36.0-46.0) 12/11/19 09:45 Abnormal Lab Findings: Abnormal Labs 12/11/19 09:45 WBC 13.78 H
[2019-12-11] MEDS: Penicillin G POT. 3,000,000 UNITS in Normal Saline 50 ML 100 UNITS IVPB ×2 (21:35→23:59)
[2019-12-11] MEDS: fentaNYL 100 MCG/2 ML VIAL EP (21:48)
[2019-12-11] MEDS: Bupivacaine 0.25% Pres-Free 30 ML VIAL (21:48)
[2019-12-11] MEDS: FentaNYL/ROPIvacaine 2 mcg/ml and 0.1% 200 ML CADD Cassette EP (21:50)
--- NOTE | 2019-12-11 22:14 | W.PM.OBNL1 ---
Date of service: 12/11/19 Time of Service: 22:15 Informed Consent Informed Consent: Regional Anesthesia Pelvic Exam Dilation: 6 Effacement (%): 100 station: -1 Cervix Position: mid Consistency: soft Vaginal Exam Presentation: Cephalic Contractions Monitor Mode: External Contraction Frequency(min): every 4-5 minutes Intensity: Moderate Fetus A Monitor: External (US) Heart Rate Baseline: 145 Presentation: Cephalic Variability: Moderate (6-25 BPM) Categories: Category I FHR Rhythm: Regular Characteristics: Normal Accelerations: 15 X 15 Decelerations: None Amniotic Membrane Status: Ruptured Rupture Method: Artifical Amniotic Fluid: Clear Amount: scant Date of Membrane Rupture: 12/11/19 Time of Membrane Rupture: 22:08 Assessment and Plan Assessment and plan (1) Prolonged labor with first : Status: Acute Assessment and plan: A: G1 @ 40 wks, active labor, epidural anesthesia, AROM clear, GBS+ prophylaxis P: Encourage pt to sleep/rest now that she is comfortable EFM per protocol, assess for adequacy of labor Consider pitocin augmentation if indicated Dr. Henderson updated to pt status Objective Vital Signs Reviewed: Yes Objective Narrative Objective Narrative: Epidural placed successfully, pt states she feels better though still using nitrous with contractions Category 1 tracing, AROM of scant amount clear fluid Montanez in place draining clear yellow urine Pt placed RLP to encourage even bilateral coverage of anesthesia BASIN OPERATOR placed in pt's reach and she has been instructed in it's use Contractions have decreased from every 2-4 min to every 7-8 min Subjective Interval history since last seen: Epidural providing effective relief, pt reports she is tired and may sleep now.
[2019-12-11 22:52] LABS: *AMPHETAMINES SCREEN URINE Negative (Negative); *BARBITURATES SCREEN URINE Negative (Negative); *BENZODIAZEPINES SCREEN URINE Negative (Negative); Cannabinoids THC Negative (Negative); Cocaine Screen,Urine Negative (Negative); METHADONE URINE SCREEN Negative (Negative); OPIATES URINE SCREEN POSITIVE (Negative)
[2019-12-11 22:55] LABS: Tricyclic Antidepressants Negative (Negative)
[2019-12-11 23:34] LABS: COVID-19 RT-PCR UVMMC Result Negative (Negative)
[2019-12-11] MEDS: Oxytocin/Normal Saline 30 UNIT/500 ML BAG 2 UNITS IV (23:59)
[2019-12-12] VITALS (26 sets, daily range): BP systolic 89–146; BP diastolic 51–85; PULSE 78–115; RESP 14–20; TEMP 36.6–37.5; O2SAT 94–98
[2019-12-12] MEDS: Penicillin G POT. 3,000,000 UNITS in Normal Saline 50 ML 100 UNITS IVPB (03:17)
--- NOTE | 2019-12-12 04:10 | PGE_ITS ---
Date of service: 12/12/19 Time of Service: 04:10 Pelvic Exam Dilation: 10 station: +3 Vaginal Exam Presentation: Vertex Contractions Monitor Mode: External Contraction Frequency(min): every 2-3 minutes Intensity: Moderate/Strong Fetus A Monitor: External (US) Heart Rate Baseline: 150 Presentation: Vertex Variability: Moderate (6-25 BPM) Categories: Category I FHR Rhythm: Regular Characteristics: Normal Accelerations: 15 X 15 Decelerations: Early Recurrence: Intermittent Assessment and Plan Assessment and plan (1) 40 weeks gestation of : Status: Acute Assessment and plan: A: beginning 2nd stage, epidural, pitocin augmentation @ 2 MU/min since midnight P: pt coached in pushing efforts nitrous use discontinued, INSURANCE CLAIMS SPECIALIST use discouraged 2nd stage huddle completed preparations for increased risk for SD and PPH in place, d/t lengthy labor, primip status anticipate Objective Vital Signs Reviewed: Yes Objective Narrative Objective Narrative: complete dilation vtx +3 just behind pubic arch Maternal temp 37.2 oral C Category 1 tracing, previously noted occasional nonrecurrent variables have resolved Baseline noted to have risen from 130's to 150's Subjective Patient Reports: New Complaints Interval history since last seen: Pt feels increasing rectal pressure when she has contractions
--- NOTE | 2019-12-12 05:48 | PGE_ITS ---
Date of service: 12/12/19 Time of Service: 05:48 Pelvic Exam station: +3 Contractions Monitor Mode: External Contraction Frequency(min): every 2-4 minutes Intensity: Moderate/Strong Fetus A Monitor: External (US) Heart Rate Baseline: 165 Presentation: Vertex Variability: Moderate (6-25 BPM) Categories: Category II FHR Rhythm: Regular Characteristics: Normal Accelerations: 15 X 15 Decelerations: Variable Recurrence: Periodic Assessment and Plan Assessment and plan (1) Prolonged labor with first : Status: Acute Assessment and plan: A: G1 s/p prolonged latent phase > 24 hrs, active phase 6 hrs w/augmentation, second stage >2 hrs, epidural, minimal descent, category 2 P: Dr. Henderson updated to pt status, will be to room for evaluation Continue maternal pushing efforts Objective Objective Narrative Objective Narrative: Pt has been pushing in several positions for 2 hours, epidural in effect though pt has not been using ENGINEER CHIEF or nitrous. Maternal efforts have been fair/good, caput visible in vaginal vault, vtx at pubic arch but has not descended further since 2nd stage pushing began Category 2 tracing d/t periodic non-recurrent variables, FHT baseline currently 150- 165 Pt remains afebrile and normotensive Subjective Patient Reports: No new Complaints
--- NOTE | 2019-12-12 06:46 | OBCE_ITS ---
Date of service: 12/12/19 Time of Service: 06:47 Assessment and Plan Assessment and plan (1) Prolonged labor with first : Status: Acute (2) 40 weeks gestation of : Status: Acute (3) Arrested labor: Status: Acute Assessment and plan: In light of a prolonged labor course, arrest of descent, moderate caput, and maternal exhaustion, patient will proceed with primary low transverse section. The risk, benefits, alternatives of procedure have been explained to the patient in full informed consent was obtained. She is group B strep positive and has been ruptured for less than 12 hours. She has received numerous doses of penicillin for group B strep prophylaxis. Preoperative antibiotics will be given. She will have DVT prophylaxis with compression stockings. History of Present Illness History of Present Illness Chief Complaint: Labor arrest Narrative: Currently asked by our wellfield technician team to evaluate patient who has been having routine care with women's wellness and the nurse wellfield technician practice. She has had a prolonged labor course with approximate 24-hour latent labor stage. She became active in labor at approximately 4 cm yesterday evening with artificial rupture of membranes for clear fluid. She received an epidural anesthesia and progressed through labor with Pitocin augmentation. She became completely dilated and after approximately 3 hours of pushing with good maternal effort has an arrest of descent. On examination patient has a narrow pubic arch with estimated weight of approximately 3800 g. vertex is somewhat asynclitic with a moderate amount of molding. She is given opportunity to continue the pushing process versus primary section. Risks, benefits, alternatives of the procedure have been explained to the patient in full informed consent was obtained. Or crew was notified as was nursing supervisor grove and anesthesia. She will be taken the operating room for an unscheduled primary section due to arrest of descent. Consults Consult date: 12/12/19 Requesting physician: Fannie Archuleta Review of Systems Constitutional Comments: Extreme exhaustion due to labor and pushing process Eyes Eyes: Reports system reviewed and no additional complaints, except as documented ENT Ears, Nose, Mouth, and Throat: Reports system reviewed and no additional complaints, except as documented Cardiovascular Cardiovascular: Denies chest pain, Denies rapid heart rate and Denies palpitations Respiratory Respiratory: Reports system reviewed and no additional complaints, except as documented Gastrointestinal Gastrointestinal: Reports system reviewed and no additional complaints, except as documented Genitourinary Genitourinary: Reports as per HPI Musculoskeletal Musculoskeletal: Reports system reviewed and no additional complaints, except as documented Integumentary/Breasts Skin/Breast: Reports system reviewed and no additional complaints, except as documented Psychiatric Psychiatric: Reports system reviewed and no additional complaints, except as documented Endocrine Endocrine: Denies palpitations [facility] Medical History 17 weeks gestation of ADHD Dysuria False labor after 37 completed weeks of gestation History of drug dependence/abuse LGSIL of cervix of undetermined significance Opioid abuse Currently dosing daily with 1mg suboxone that she buys off street Size of fetus inconsistent with dates in third trimester Family History Paternal Grandfather H/O heart artery stent Paternal Grandmother Hypertension Maternal Grandfather Heart disease Maternal Grandmother Alcohol abuse @ 54 Social History Smoking/Tobacco Use Status: Former Tobacco Use Tobacco: How many years used: 4 Quit status: considering quitting Alcohol Intake: former Details: stopped w/ knowledge of . Substance use type: marijuana Female Reproductive History Menstrual Age of Menarche: 12 control method: none History History 1 Para 0 Hx # Term Pregnancies 0 Multiple births 0 Hx # Pregnancies 0 Ectopic pregnancies 0 AB induced 0 Hx Number of Living Children 0 AB spontaneous 0 Exam Narrative Exam Narrative: Patient seen and examined this morning she is alert, oriented and significantly fatigued. HENMT Face and sinus: normal facial exam Eyes General: appearance normal, both eyes and all related structures Resp Effort & Inspection: normal respiratory effort Cardio Rate: regular rate Rhythm: regular rhythm GI Other: Gravid, estimated weight approximately 3800 to 4000 g Other: Pelvic examination performed. Vertex fetus with an asynclitic right occiput anterior positioning. Moderate caput. Narrow pubic arch Skin General skin exam: no rashes or lesions noted Results Last Vital Signs Temp 99.0 F 12/12/19 04:19 Pulse 100 H 12/12/19 04:45 Resp 18 12/12/19 00:05 BP 124/54 L 12/12/19 04:45 Pulse Ox 98 12/12/19 00:05 Labs Result diagrams: 12/11/19 09:45 Labs: Laboratory Results - last 24 hr 12/11/19 12/11/1920 09:45 09:45 10:35 WBC 13.78 H RBC 4.02 Hgb 11.9 Hct 36.5 MCV 90.8 MCH 29.6 MCHC 32.6 RDW 13.7 Plt Count 264 MPV 10.7 Urine Opiates Screen Urine Methadone Screen Ur Barbiturates Screen Ur Tricyclics Screen Ur Amphetamines Screen U Benzodiazepines Scrn Urine Cocaine Screen Ur THC Screen COVID-19 PCR Negative Nasopharyn COVID-19 PCR Not Applicable Ref Test Perform Site [facility] lab Patient ABO/Rh O Positive Antibody Screen Negative 12/11/19 17:06 WBC RBC Hgb Hct MCV MCH MCHC RDW Plt Count MPV Urine Opiates Screen Positive A Urine Methadone Screen Negative Ur Barbiturates Screen Negative Ur Tricyclics Screen Negative Ur Amphetamines Screen Negative U Benzodiazepines Scrn Negative Urine Cocaine Screen Negative Ur THC Screen Negative COVID-19 PCR Nasopharyn COVID-19 PCR Ref Test Perform Site Patient ABO/Rh Antibody Screen
[2019-12-12] MEDS: ceFAZolin 2 GM/50 ML BAG 50 GM (06:55)
[2019-12-12] MEDS: Sodium Citrate 30 ML CUP (06:55)
[2019-12-12] MEDS: ceFAZolin 2 GM/50 ML BAG IVPB (07:09)
[2019-12-12] MEDS: AZITHROMYCIN 500 MG in Normal Saline 250 ML 250 MG IVPB (07:19)
[2019-12-12] MEDS: Lactated Ringers 1,000 ML 150 ML IV (07:51)
--- NOTE | 2019-12-12 08:26 | PDOC.OPNB_ITS ---
Date of service: 12/12/19 Time of Service: 08:26 Operative Note Operative Note Delivery Method: Unscheduled Category: Urgent DATE OF PROCEDURE: 12/12/19 PRE-OP DIAGNOSES: at 40 weeks and 1 day, arrest of descent POST-OP DIAGNOSES: same Persistent left occiput posterior PROCEDURE: Primary low transverse section SURGEON: Tanya Henderson Rail Operations Controller: Fannie Archuleta Anesthesia: spinal Estimated blood loss (mL): 500 Pathology: none sent Complications: None Patient was transported to: floor Patient's condition: stable Indications: Arrest of descent Findings: Persistent left occiput posterior Procedure Description: Patient is a 29-year-old female primigravida who [facility] service. She presented in latent labor with a prolonged latent phase of approximately 24 hours at term. She had onset of active labor with artificial rupture membranes for clear fluid at approximately 9 PM 12/11/2019. She did receive epidural for pain control. She was completely dilated however, after 3 hours of pushing failed to vertex descended into the pelvis. As culture evaluation either operative vaginal delivery or section for continued patient. Per my clinical examination patient was in the patient's occiput posterior position with moderate caput and maternal exhaustion. There was no active descent with pushing at that point. The decision was made for primary low transverse section. Risks benefits and alternatives procedure have been explained to patient in full informed consent was obtained. She was taken to the operating suite where spinal anesthesia was administered, tested and found to be adequate. She was placed in dorsal supine position with leftward tilt and prepped and draped in the usual sterile fashion with vaginal prep performed. She had a previous Montanez catheter that had been inserted and pneumatic compression stockings placed for DVT prophylaxis. She did receive antibiotics not only for group B strep, but for surgical prophylaxis as well. At this point a Pfannenstiel skin incision was made carried down to the underlying fascia which was nicked in the midline extended laterally. Rectus muscles identified and split in the midline. Peritoneum identified, tented up and entered sharply and the peritoneal incision was then extended superiorly and inferiorly. At this point the bladder blade was inserted and the vesicouterine peritoneum identified tented up and sharply. The bladder was meticulously dissected away from the lower uterine segment. A low transverse uterine incis ion was made and extended laterally bluntly. vertex was well within the pelvis and with gentle cephalad traction vertex was delivered from the left occiput posterior position. There is no evidence of nuchal cord. Shoulders delivered with ease. Three-vessel cord was noted, height x2, was handed off to the pediatric team. At this point cord blood sample was obtained and placenta manually expressed. The uterus then exteriorized and cleared of all clot and debris. Uterine incision was closed in a 2 layer closure with 0 Monocryl suture. First layer was a running locked and second layer imbricating fashion. The uterine incision was hemostatic and uterus returned to the abdomen. Uterus tubes and ovaries were normal. Abdomen irrigated with copious months of normal saline. At this point fascial incision was closed using 0 Monocryl suture in running fashion subcutaneous tissue irrigated with copious amounts of normal saline subcu space closed with 3-0 Vicryl skin edge reapproximated with 4-0 undyed Monocryl in a subcuticular fashion. Steri-Strips and dressing were placed. Patient tolerated procedure without difficulty and returned to the center for with her ne wborn infant. Qualitative blood loss: 500 cc Fluids: 700 cc crystalloid anesthesia Urine output: 200 cc dark yellow urine. Complications: None apparent Gestational Age in Weeks/Days: 40 Weeks and 1 Days Infant Gender: Male
[2019-12-12] MEDS: Lactated Ringers 1,000 ML 120 ML IV (13:03)
[2019-12-12] MEDS: Ketorolac 30 MG/ML VIAL IVP ×2 (14:26→21:26)
[2019-12-12] MEDS: Acetaminophen 325 MG TAB 650 MG PO (15:04)
[2019-12-13 00:30] VITALS: BP 93/61; PULSE 96; RESP 14; TEMP 37.1; O2SAT 97
[2019-12-13] MEDS: Ketorolac 30 MG/ML VIAL IVP (03:00)
[2019-12-13 06:33] LABS: Abs Immature Grans 0.16 10^3/uL (0.0-0.06); Basophils % 0.2; Eosinophils % 0.8; HCT 28.7 % (36.0-46.0); HGB 9.2 g/dL (11.2-15.7); Immature Grans % 0.9; Lymphocytes % 10.9; MCH 29.3 pg (27.0-33.0); MCHC 32.1 % (32.0-36.0); MCV 91.4 fL (80-95); MPV 10.3 fL (8.0-11.0); Monocytes % 6.9; Neutrophils % 80.3; Nucleated RBC 0 %; Platelet Count 213 10^3/uL (130-400); RBC 3.14 10^6/uL (3.93-5.22); RDW-SD 46.3 fL; WBC 18.34 10^3/uL (4.4-10.8)
[2019-12-13 06:37] LABS: Absolute Basophil Count 0.04 10^3/uL (0.0-0.2); Absolute Eosinophil Count 0.15 10^3/uL (0.0-0.7); Absolute Monocyte Count 1.27 10^3/uL (0.1-0.8); Absolute Neutrophil Count 14.73 10^3/uL (1.2-6.7)
--- NOTE | 2019-12-13 08:53 | OBPPV_ITS ---
Date of service: 12/13/19 Time of Service: 08:53 Assessment and Plan Assessment and plan (1) History of primary section: Status: Acute Assessment and plan: Postoperative day #1, status post primary low transverse section. Doing well. Will ambulate today. Hemoglobin this morning 9.2, asymptomatic. Continue to monitor. (2) Arrested labor: Status: Acute Subjective Subjective Patient comments: No complaints Patient's Mood: Good, fatigued baby status: Doing well, Nursing well and Rooming in [place] feeding status: Exclusively breast feeding Exam Physical Exam Vital signs: Temp Pulse Resp BP Pulse Ox 98.8 F 96 H 14 93/61 L 97 12/13/19 00:30 12/13/19 00:30 12/13/19 00:30 12/13/19 00:30 12/13/19 00:30 Constitutional Constitutional: no acute distress HEENT Exam HEENT Exam: Normal Respiratory Exam Respiratory Exam: Normal Cardiovascular Exam Cardiovascular Exam: Normal Abdominal Exam Abdomen: Tender Comments: Incision clean, dry, intact. Healing well Fundal Exam Fundus: Below Umbilicus and Firm Extremities Exam Extremity Exam: Edema; negative Calf Tenderness Psychiatric Exam Psychiatric Exam: Normal Results Hemoglobin/Hematocrit: Hgb 9.2 g/dL (11.2-15.7) L D 12/13/19 06:20 Hct 28.7 % (36.0-46.0) L D 12/13/19 06:20 Abnormal Lab Findings: Abnormal Labs 12/11/19 12/11/19 12/13/19 09:45 17:06 06:20 WBC 13.78 H 18.34 H RBC 3.14 L Hgb 9.2 L D Hct 28.7 L D Absolute Neutrophils 14.73 H Absolute Monocytes 1.27 H Urine Opiates Screen Positive A
[2019-12-13 08:55] VITALS: BP 91/60; PULSE 96; RESP 20; TEMP 36.5; O2SAT 97
[2019-12-13] MEDS: Ibuprofen 600 MG TAB PO ×3 (09:09→21:03)
[2019-12-13] MEDS: Acetaminophen 325 MG TAB 650 MG PO (11:08)
[2019-12-13 15:00] VITALS: BP 104/73; PULSE 96; RESP 18; TEMP 36.7; O2SAT 97
[2019-12-13 15:16] VITALS: TEMP 36.7
[2019-12-13] MEDS: oxyCODONE 5 mg/Acetaminophen 325 mg TAB PO ×2 (15:17→21:07)
[2019-12-13 20:00] VITALS: BP 98/63; PULSE 108; RESP 20; TEMP 36.5; O2SAT 96
[2019-12-14 00:05] VITALS: BP 98/64; PULSE 108; RESP 18; TEMP 36.6
[2019-12-14] MEDS: Ibuprofen 600 MG TAB PO ×2 (03:08→14:01)
[2019-12-14] MEDS: oxyCODONE 5 mg/Acetaminophen 325 mg TAB PO ×2 (03:09→09:03)
[2019-12-14 03:14] VITALS: BP 118/79; PULSE 108; RESP 18; TEMP 36.6
[2019-12-14 07:30] VITALS: BP 103/67; PULSE 108; TEMP 36.8
--- NOTE | 2019-12-14 08:07 | OBPPV_ITS ---
Date of service: 12/14/19 Time of Service: 08:07 Assessment and Plan Assessment and plan (1) History of primary section: Status: Acute (2) Arrested labor: Status: Acute Subjective Subjective Patient comments: No complaints, Incisional pain, Tolerating diet and Flatus present; no Bowel Movement baby status: Doing well and Nursing well [place] feeding status: Exclusively breast feeding Exam Physical Exam Vital signs: Temp Pulse Resp BP Pulse Ox 98 F 108 H 18 118/79 96 12/14/19 03:14 12/14/19 03:14 12/14/19 03:14 12/14/19 03:14 12/13/19 20:00 Constitutional Constitutional: no acute distress Comments: Patient slightly tearful today in light of the fact that she desperately wants to go home. She states that she has help at home and would like to sleep in her own bed. HEENT Exam HEENT Exam: Normal Respiratory Exam Respiratory Exam: Normal Cardiovascular Exam Cardiovascular Exam: Normal Abdominal Exam Abdomen: Tender Comments: Incision clean, dry, intact, slight surrounding erythema from irritation. No signs of infection. Fundal Exam Fundus: Below Umbilicus and Firm Extremities Exam Extremity Exam: Normal and Edema Neurological Exam Neurological Exam: Normal Psychiatric Exam Psychiatric Exam: Normal DetailedPsychiatric Exam Psych Exam: Normal Affect and Cooperative Results Hemoglobin/Hematocrit: Hgb 9.2 g/dL (11.2-15.7) L D 12/13/19 06:20 Hct 28.7 % (36.0-46.0) L D 12/13/19 06:20 Abnormal Lab Findings: Abnormal Labs 12/11/19 12/11/19 12/13/19 09:45 17:06 06:20 WBC 13.78 H 18.34 H RBC 3.14 L Hgb 9.2 L D Hct 28.7 L D Absolute Neutrophils 14.73 H Absolute Monocytes 1.27 H Urine Opiates Screen Positive A
--- NOTE | 2019-12-14 08:14 | W.PM.DS.N ---
Date of service: 12/14/19 Time of Service: 08:15 DS: Diagnosis Discharge Diagnosis (1) History of primary section: Status: Acute (2) Arrested labor: Status: Acute Discharge Plan Disposition Patient Disposition: HOME Condition: Good Discharge Details Reason For Visit: Primary section Admit Date/Time: 12/11/19 08:25 Admit Provider: Cookie Dent Attending Provider: Cookie Dent Primary Care Provider: None,None Hospital Course Hospital Course: Patient is a 29-year-old female who had care with [facility]wifery practice. She presented in early latent labor with a prolonged latent phase. She had a prolonged labor course and after approximately 3 hours of maternal effort in the second stage had an arrest of descent. She underwent primary low transverse section which was uncomplicated. She had a routine postoperative course and was discharged home postoperative day #2, ambulating, tolerating a regular diet, tolerating oral pain medication with stable vital signs. She will be seen back in the office in 1 to 2 weeks for incision check and routine group home Meds and New Rx's Prescriptions: New hydrocodone-acetaminophen [Gilbert] 5-325 mg tablet 1 tab PO Q8H PRNQty: 10 RF: 0 ibuprofen 800 mg tablet 800 mg PO Q8H PRNQty: 30 RF: 1 docusate sodium [Colace] 100 mg capsule 100 mg PO BID Qty: 20 RF: 0 No Action PrePlus 27 mg iron- 1 mg tablet 1 tab PO DAILY Qty: 90 RF: 3 ferrous sulfate 325 mg (65 mg iron) tablet 325 mg PO DAILY Qty: 60 RF: 0 clotrimazole [Lotrimin AF (clotrimazole)] 1 % cream 1 applic topical TID Qty: 28 RF: 0 Discharge Instructions Stand Alone Forms: BC Discharge Instruc Activity:: No heavy lifting, pelvic Equipment/Supplies:: No Equipment Needed Diet:: As Tolerated Discharge Orders Discharge Orders: Discharge Order (Routine); Ordered 12/14/19 Ordered By: Tanya Henderson DS: Summary Summary Time spent discussing smoking cessation with patient: 3 to 10 minutes Status at Discharge Functional status at discharge: independent ambulation Overall status at discharge: patient is back to baseline Mental Status: mental status grossly normal Speech and Movement: speech and movement normal Mood: congruent mood Affect: normal affect Time Spent with Patient providing and/or coordinating discharge services: Less than 30 minutes Exam Narrative Exam Narrative: See physical exam from progress note today Psych Mental Status: mental status grossly normal Speech and Movement: speech and movement normal Mood: congruent mood Affect: normal affect DS: Data Vitals/I&O Vitals and I&O: Vital Signs Temperature 98 F 12/14/19 03:14 Pulse 108 H 12/14/19 03:14 Pulse Rhythm Regular 12/14/19 00:05 Respiratory Rate 18 12/14/19 03:14 Respiratory Depth Normal 12/13/19 08:55 Blood Pressure 118/79 12/14/19 03:14 Blood Pressure Mean 92 12/14/19 03:14 Pulse Oximetry 96 12/13/19 20:00 Oxygen Delivery Method Room Air 12/11/19 09:30 Oxygen Flow Rate 0 12/11/19 09:30 Pain Level 5 12/14/19 03:14 Comment 12/11/19 22:20 Intake & Output 12/13/19 12/13/19 12/14/19 11:59 23:59 11:59 Intake Total 505.016 / 505.016 Output Total 2100 / 2900 800 / 2900 Balance -1594.984 / -2394.984 -800 / -2394.984 Intake: IV 155.016 / 155.016 Oral 350 / 350 Output: Urine 2100 / 2900 800 / 2900 Other: Urine Color Yellow Yellow Urine Appearance Clear [facility] Medical History (Updated 12/12/19 @ 06:52 by Tanya Henderson DO) 17 weeks gestation of ADHD Arrested labor Dysuria False labor after 37 completed weeks of gestation History of drug dependence/abuse LGSIL of cervix of undetermined significance Opioid abuse Currently dosing daily with 1mg suboxone that she buys off street Size of fetus inconsistent with dates in third trimester Surgical History (Updated 12/13/19 @ 09:01 by Tanya Henderson DO) History of primary section Family History Paternal Grandfather H/O heart artery stent Paternal Grandmother Hypertension Maternal Grandfather Heart disease Maternal Grandmother Alcohol abuse @ 54 Social History Smoking/Tobacco Use Status: Former Tobacco Use Tobacco: How many years used: 4 Quit status: considering quitting Alcohol Intake: former Details: stopped w/ knowledge of . Substance use type: marijuana Female Reproductive History Menstrual Age of Menarche: 12 control method: none History History 1 Para 0 Hx # Term Pregnancies 0 Multiple births 0 Hx # Pregnancies 0 Ectopic pregnancies 0 AB induced 0 Hx Number of Living Children 0 AB spontaneous 0
[2019-12-18 09:10] LABS: Buprenorphine Negative
== END 2019-12-14 15:05 | disposition home or self-care (01) | DRG 787 ==
PROVIDERS: Obstetrics & Gynecology; Admitting Provider Advanced Practice Midwife; Visit Provider Advanced Practice Midwife
PROC: 10D00Z1 Extraction of Products of Conception, Low, Open Approach (ICD-10-PCS; CPT 59514; principal; 2019-12-12 10:00)
DX: O63.0 Prolonged first stage (of labor) (principal); Z37.0 Single live birth; O99.324 Drug use complicating childbirth; O62.1 Secondary uterine inertia; O65.8 Obstructed labor due to other maternal pelvic abnormalities; O75.81 Maternal exhaustion complicating labor and delivery; Z3A.40 40 weeks gestation of pregnancy; O99.824 Streptococcus B carrier state complicating childbirth; Z11.59 Encounter for screening for other viral diseases; Z67.40 Type O blood, Rh positive; F11.21 Opioid dependence, in remission
CPT/HCPCS: 59514; 36415; 80307; 85027; 86850; 86900; 86901; 99238; 99253; U0003; 85025; J0171; J0456; J0690; J1885; J2270; J2310; J2370; J2405; J2540; J3010

== ENCOUNTER 2021-01-17 14:30 | Emergency (ER) | payer MEDICAID, SELFPAY ==
[2021-01-17 14:40] VITALS: BP 119/77; PULSE 118; RESP 16; TEMP 37.3; O2SAT 99
--- NOTE | 2021-01-17 14:45 | DI.RAD_ITS ---
Exam(s) XR PORTABLE CHEST AP EXAM: XR PORTABLE CHEST AP CLINICAL HISTORY: cough, fever. TECHNIQUE: 2D digital imaging was performed. COMPARISON: No exams were available for comparison FINDINGS: Heart size is upper normal. The mediastinum is not widened. Lungs are clear. No infiltrates nor obvious pleural effusions. IMPRESSION: No acute pulmonary findings on this single AP portable view of the chest. DATA REPOSITORY: RADIATION DOSE DELIVERED: All CT scans at this facility use at least one of these dose optimization techniques: automated exposure control; mA and/or kV adjustment per patient size (includes targeted e xams where dose is matched to clinical indication); or iterative reconstruction.
--- NOTE | 2021-01-17 14:56 | ED.GENADUL_ITS ---
Discharge Plan Disposition Patient Disposition: HOME Condition: Improving Discharge Details Clinical Impression: Acute viral syndrome Primary Care Provider: Unknown,Unknown ED Provider: Abelino Olson Home Meds and New Rx's Prescriptions: No Action No Known Home Meds RF: 0 Discharge Instructions Instructions: Viral Syndrome (ED) Additional Instructions: Home to rest today. We will call you with the results of your COVID-19 test. Continue Tylenol and ibuprofen as needed for pain. Continue to self isolate while awaiting COVID-19 test. Return to the emergency department for any acute concerns. Stand Alone Forms: Work Release Discharge Data Discharge Date/Time-TO BE ENTERED AT DEPARTURE: 01/17/21 16:56 Medical Decision Making 30-year-old female presents from home with 4 days of intermittent episodes of fever, cough, subjective chills, body ache, loss of taste. She has been able to eat and drink but less so. Describes increased need for sleep. Patient arrives borderline tachycardia at rest, afebrile and oxygenating normally. Differential diagnosis includes dehydration, viral syndrome, COVID- 19. Patient had screening laboratories obtained with COVID-19 PCR test, chest x-ray. Laboratories: White blood cell count 4, hematocrit 46, platelets 1 6. Chemistries unremarkable. COVID-19 PCR pending. Chest x-ray no acute findings. Discussed with her consideration of COVID-19 and that she should continue to self isolate pending results. She is stable and appropriate for discharge to home at this time. HPI General Mode of arrival: ambulatory . Date/Time Provider Initiated Documentation: 01/17/21 14:31 . Limitations to Documentation: no limitations . Information obtained by: patient . History of Present Illness 30 year old F presents to the emergency department with the chief complaint of Fever, cough, muscle aches, Quality is described as dull and constant, and is localized to the chest. Patient reports no radiation. Patient started experiencing this day(s) and it has been intermittent. No relieving factors improve symptom(s), No exacerbating factors reported . Patient notes cough, fever/chills, loss of appetite and weakness; denies shortness of breath and syncope. Patient did receive the following treatments prior to arrival, none Related Data Home Medications Medication Instructions Recorded Confirmed Unknown [No Known Home Meds] 01/17/21 01/17/21 Allergies Allergy/AdvReac Type Severity Reaction Status Date / Time No Known Allergies Allergy Unverified 01/17/21 14:45 General Stated Complaint: RespSymp KAITY: 3 Review of Systems Narrative: Not immunized against COVID-19. 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 Endorses body ache, muscle ache, cough, fever and chills. 8 systems reviewed and otherwise negative [facility] Active Problem List Encounter for management and injection of depo-Provera (Acute) Encounter for assessment (Acute) Postoperative wound seroma (Acute) Yeast dermatitis (Acute) History of primary section (Acute) Arrested labor (Acute) Prolonged labor with first (Acute) Prolonged latent phase of labor (Acute) 40 weeks gestation of (Acute) History of drug dependence/abuse (Acute) ADHD (Acute) LGSIL of cervix of undetermined significance (Acute) (Acute) Adjustment disorder with mixed anxiety and depressed mood (Acute) Medical History 17 weeks gestation of Dysuria False labor after 37 completed weeks of gestation Opioid abuse Currently dosing daily with 1mg suboxone that she buys off street Size of fetus inconsistent with dates in third trimester Family History Paternal Grandfather H/O heart artery stent Paternal Grandmother Hypertension Maternal Grandfather Heart disease Maternal Grandmother Alcohol abuse @ 54 Social History Smoking/Tobacco Use Status: Former Tobacco Use Tobacco: How many years used: 4 Quit status: considering quitting Smoking risk assessment performed?: Yes Alcohol Intake: former Details: stopped w/ knowledge of . Substance use type: marijuana Female Reproductive History Menstrual Age of Menarche: 12 control method: none History History 1 Para 0 Hx # Term Pregnancies 1 Multiple births 0 Hx # Pregnancies 0 Ectopic pregnancies 0 AB induced 0 Hx Number of Living Children 0 AB spontaneous 0 Past Pregnancies Del. Date GA/Weeks # Outcome Route Wgt Sex Labor Lgth Anesthes ia Location Prov Complic 12/12/19 40 No Successful 3770.[address] Henderson Exam Narrative Exam Narrative: GEN: awake, alert, oriented 3. Pleasant, well groomed, interactive. HEAD: Normocephalic, atraumatic ENT: Mucous membranes moist, oropharynx unremarkable, External ear exam unremarkable EYES: PERRL, EOMI NECK: Full ROM, no LORA, no menigismus CHEST/RESP: Nontender, clear to auscultation bilateral, no wheeze/rhonchi/rales CARDIOVASCULAR: Regular and tachycardic, no murmur, rub hailey. 2+ Rad pulse bilateral ABDOMEN: Soft, nontender, no mass. +Bowel sounds EXT: Full ROM, no edema, no rash Neuro: Grossly normal neurologic exam, conversant, interactive. Psych: Speech fluent, thoughts congruent, affect normal Course Vital Signs Vital signs: Vital Signs Temperature 37.3 C 01/17/21 14:40 Pulse 118 H 01/17/21 14:40 Respiratory Rate 16 01/17/21 14:40 Blood Pressure 119/77 01/17/21 14:40 Pulse Oximetry 99 01/17/21 14:40 Temperature 37.3 C 01/17/21 14:40 Temperature Source Skin 01/17/21 14:40 Pulse 118 H 01/17/21 14:40 Respiratory Rate 16 01/17/21 14:40 Respiratory Effort Non-Labored 01/17/21 14:40 Blood Pressure 119/77 01/17/21 14:40 Blood Pressure Position Sitting 01/17/21 14:40 Pulse Oximetry 99 01/17/21 14:40 Oxygen Delivery Method Room Air 01/17/21 14:40 Oxygen Flow Rate 0 01/17/21 14:40 Pain Level 7 01/17/21 14:40
[2021-01-17 15:26] LABS: Abs Immature Grans 0.01 10^3/uL (0.0-0.06); Absolute Basophil Count 0.01 10^3/uL (0.0-0.2); Absolute Eosinophil Count 0.01 10^3/uL (0.0-0.7); Absolute Lymphocyte Count 0.59 10^3/uL (1.2-3.4); Absolute Monocyte Count 0.29 10^3/uL (0.1-0.8); Absolute Neutrophil Count 3.23 10^3/uL (1.2-6.7); Basophils % 0.2; Eosinophils % 0.2; HCT 46.2 % (36.0-46.0); HGB 14.8 g/dL (11.2-15.7); Immature Grans % 0.2; Lymphocytes % 14.3; MCH 28.1 pg (27.0-33.0); MCV 87.7 fL (80-95); MPV 10.8 fL (8.0-11.0); Neutrophils % 78.1; Nucleated RBC 0 %; Platelet Count 166 10^3/uL (130-400); RBC 5.27 10^6/uL (3.93-5.22); RDW 12.4 % (11.7-14.6); WBC 4.14 10^3/uL (4.4-10.8)
[2021-01-17 15:29] VITALS: BP 98/66; PULSE 92; RESP 16; TEMP 37.5; O2SAT 98
[2021-01-17] MEDS: Normal Saline 1,000 ML 1000 ML IV (15:33)
[2021-01-17 15:34] LABS: Anion Gap 7.6 mmol/L (3-11); BUN 9 mg/dL (7-18); CO2 27.4 mmol/L (21.0-32.0); CREATININE 0.8 mg/dL (0.55-1.02); Calcium 8.8 mg/dL (8.5-10.1); Chloride 105 mmol/L (98-107); Glucose 109 mg/dL (74-106); Potassium 3.9 mmol/L (3.5-5.1); Sodium 140 mmol/L (136-145)
--- NOTE | 2021-01-17 16:31 | DI.VRAD_ITS ---
PROCEDURE INFORMATION: Exam: XR Chest Exam date and time: 01/17/2021 2:57 PM Age: 30 years old Clinical indication: Cough and fever TECHNIQUE: Imaging protocol: XR of the chest. Views: 1 view. COMPARISON: No relevant prior studies available. FINDINGS: Lungs: Unremarkable. No consolidation. Pleural spaces: Unremarkable. No pleural effusion. No pneumothorax. Heart/Mediastinum: Unremarkable. No cardiomegaly. Bones/joints: Unremarkable. IMPRESSION: No acute findings. Dictated and Authenticated by: Flaca Pickens MD. Ordering:DARREN Roca MD
[2021-01-17] MEDS: Acetaminophen 500 MG TAB 1000 MG PO (16:48)
[2021-01-17 16:54] VITALS: BP 116/72; PULSE 91; RESP 18; TEMP 37.1; O2SAT 99
[2021-01-17 16:56] VITALS: BP 116/72; PULSE 91; RESP 18; TEMP 37.1; O2SAT 99
[2021-01-19 16:21] LABS: COVID-19 RT-PCR UVMMC Result Positive (Negative)
--- NOTE | 2021-01-19 17:14 | W.ED.FU ---
Follow Up Plan: I informed patient of her positive covid test. She has no dyspnea and advised of recommended quarantine period. All questions answered.
== END 2021-01-17 16:56 | disposition home or self-care (01) ==
PROVIDERS: Emergency Provider Emergency Medicine
DX: U07.1 COVID-19 (principal); R50.9 Fever, unspecified; R05.1 Acute cough; M79.10 Myalgia, unspecified site; R43.0 Anosmia; Z20.822 Contact with and (suspected) exposure to COVID-19
CPT/HCPCS: 36415; 80048; 96360; 99284; U0003; 71045; 85025

== ENCOUNTER 2021-03-16 19:34 | Emergency (ER) | payer MEDICAID, SELFPAY ==
[2021-03-16 19:39] VITALS: BP 104/90; PULSE 97; RESP 14; TEMP 37; O2SAT 99
--- NOTE | 2021-03-16 19:42 | ED.GENADUL_ITS ---
Discharge Plan Disposition Patient Disposition: HOME Condition: Stable Discharge Details Clinical Impression: Abrasion of toe with infection Primary Care Provider: Unknown,Unknown ED Provider: Laura Thurman Home Meds and New Rx's Prescriptions: New cephalexin 500 mg tablet 500 mg PO BID 7 Days Qty: 14 RF: 0 Discharge Instructions Instructions: Cellulitis (ED) Additional Instructions: Keep clean and dry. Wash with soap and water daily. No soaking. May apply antibiotic ointment for the next 2 to 3 days if needed. Otherwise keep it dry and open to air. Take the antibiotics as instructed. Wear the postop shoe as instructed for comfort. Follow up with primary care provider in 3-5 days. Return to ED sooner if any worsening or concerns. Increase oral fluids. Please take Tylenol or Ibuprofen with food every 4-6 hours as needed for pain and swelling. Stand Alone Forms: Work Release Medical Decision Making 30-year-old female presents to the ER with chief complaint of left great toe swelling and tenderness. Patient reports that 2 days ago she had an ingrown toenail which she dug out her self with some tweezers. She reports tenderness noted today while at work. When she lifted her toe she noticed redness, warmth and red streak to the top of her foot. She does have a some mild drainage noted from the abrasion. No evidence of paronychia, no area of fluctuance or drainable abscess. She reports applying topical antibiotic ointment she use it show today. She has a past medical history of ADHD, adjustment disorder. Findings are consistent with cellulitis. Discussed home care with patient will place in a postop shoe give cephalexin here and prescribe 10-day course of cephalexin. I did discuss using topical antibiotic ointment over the next 2 to 3 days. Patient verbalized understanding. HPI General Mode of arrival: ambulatory . Date/Time Provider Initiated Documentation: 03/16/21 19:35 . Limitations to Documentation: no limitations . Information obtained by: patient, RN notes reviewed and old records reviewed . HPI Narrative: 30-year-old female presents to the ER with chief complaint of left great toe swelling and tenderness. Patient reports that 2 days ago she had an ingrown toenail which she dug out her self with some tweezers. She reports tenderness noted today while at work. When she lifted her toe she noticed redness, warmth and red streak to the top of her foot. She does have a some mild drainage noted from the abrasion. No evidence of paronychia, no area of fluctuance or drainable abscess. She reports applying topical antibiotic ointment she use it show today. She has a past medical history of ADHD, adjustment disorder. Related Data Home Medications Medication Instructions Recorded Confirmed cephalexin 500 mg PO BID 7 Days #14 tab 03/16/21 Previous Rx's Medication Instructions Recorded cephalexin 500 mg PO BID 7 Days #14 tab 03/16/21 Allergies Allergy/AdvReac Type Severity Reaction Status Date / Time No Known Allergies Allergy Unverified 03/16/21 19:43 General KAITY: 3 Review of Systems All systems reviewed & are unremarkable except as noted in HPI and below Musculoskeletal Musculoskeletal: Reports as per HPI and Reports arthralgias (Left great toe tenderness swelling redness) [facility] All Active Problems (Updated 03/16/21 @ 19:50 by Laura Thurman) Acute viral syndrome (Acute) Abrasion of toe with infection (Acute) Encounter for management and injection of depo-Provera (Acute) Encounter for assessment (Acute) Postoperative wound seroma (Acute) Yeast dermatitis (Acute) History of primary section (Acute) Arrested labor (Acute) Prolonged labor with first (Acute) Prolonged latent phase of labor (Acute) 40 weeks gestation of (Acute) History of drug dependence/abuse (Acute) ADHD (Acute) LGSIL of cervix of undetermined significance (Acute) (Acute) Adjustment disorder with mixed anxiety and depressed mood (Acute) Active Problem List Encounter for management and injection of depo-Provera (Acute) Encounter for assessment (Acute) Postoperative wound seroma (Acute) Yeast dermatitis (Acute) History of primary section (Acute) Arrested labor (Acute) Prolonged labor with first (Acute) Prolonged latent phase of labor (Acute) 40 weeks gestation of (Acute) History of drug dependence/abuse (Acute) ADHD (Acute) LGSIL of cervix of undetermined significance (Acute) (Acute) Adjustment disorder with mixed anxiety and depressed mood (Acute) Medical History 17 weeks gestation of Dysuria False labor after 37 completed weeks of gestation Opioid abuse Currently dosing daily with 1mg suboxone that she buys off street Size of fetus inconsistent with dates in third trimester Family History Paternal Grandfather H/O heart artery stent Paternal Grandmother Hypertension Maternal Grandfather Heart disease Maternal Grandmother Alcohol abuse @ 54 Social History Smoking/Tobacco Use Status: Current every day Tobacco Type: cigarettes Tobacco: How many years used: 4 Quit status: considering quitting Smoking risk assessment performed?: Yes Alcohol Intake: current Alcohol Intake frequency: holidays/special occasions only Details: stopped w/ knowledge of . Drug use: Daily Substance use type: marijuana Do you feel safe at home: Yes Do you feel safe in your relationship?: Yes Female Reproductive History Menstrual Age of Menarche: 12 control method: none History History 1 Para 0 Hx # Term Pregnancies 1 Multiple births 0 Hx # Pregnancies 0 Ectopic pregnancies 0 AB induced 0 Hx Number of Living Children 0 AB spontaneous 0 Past Pregnancies Del. Date GA/Weeks # Outcome Route Wgt Sex Labor Lgth Anesthes ia Location Prov Complic 12/12/19 40 No Successful 3770.[address] Henderson Exam Extrem Left lower extremity: foot Details: normal capillary refill, tenderness, abrasion and other (Red streak noted to dorsum of foot) Ankle/foot/toe images: 1. Abrasion with surrounding erythema, drainage, and swelling. 2. Erythema red streak noted
[2021-03-16] MEDS: Cephalexin 500 MG CAP, 2 CAPS/BTL PO (19:55)
[2021-03-16] MEDS: Cephalexin 500 MG CAP PO (19:55)
== END 2021-03-16 20:01 | disposition home or self-care (01) ==
PROVIDERS: Emergency Provider Registered Nurse Emergency
DX: S90.412A Abrasion, left great toe, initial encounter (principal); L03.032 Cellulitis of left toe; X58.XXXA Exposure to other specified factors, initial encounter
CPT/HCPCS: 99283

== ENCOUNTER 2021-07-14 14:05 | Emergency (ER) | payer MEDICAID, SELFPAY ==
[2021-07-14 14:28] VITALS: BP 109/64; PULSE 76; RESP 16; TEMP 36.4; O2SAT 97
--- NOTE | 2021-07-14 15:30 | DI.RAD_ITS ---
Exam(s) XR CHEST 2V PA LATERAL EXAM: XR CHEST 2V PA LATERAL CLINICAL HISTORY: cough, right chest pain, has had covid 01/11 TECHNIQUE: 2D digital imaging was performed. COMPARISON: CR,XR XR PORTABLE CHEST AP from 01/17/2021 FINDINGS: The heart is not enlarged. The lungs are clear and well expanded. No pleural effusion seen. Mediastin al contours appear intact. IMPRESSION: Normal chest. RADIATION DOSE DELIVERED: Total DLP
--- NOTE | 2021-07-14 15:37 | W.ED.GENAD ---
Discharge Plan Disposition Patient Disposition: HOME Condition: Stable Discharge Details Chief Complaint: Chest/Rib Clinical Impression: Right-sided chest wall pain, Cough, Bronchitis Primary Care Provider: Unknown,Unknown ED Provider: Wisam Nettles Home Meds and New Rx's Prescriptions: No Action No Known Home Meds Discharge Instructions Instructions: Acute Bronchitis (ED), Chest Wall Pain (ED) Additional Instructions: Patient reported fluid and allow for plenty of rest. Please contact your primary care physician to arrange follow-up. Return to the ER immediately for any worsening or new concerning symptoms. Medical Decision Making 1540 --30-year-old female smoker here with right-sided chest discomfort is worse with cough and with certain positions. Patient has had cough fairly persistently over the past 3 weeks. Her son has had viral respiratory illness and required hospitalization. Patient is saturating well in no respiratory distress. She does have some rhonchi on pulmonary auscultation right-sided breath sounds seem diminished compared to left. We will obtain chest x-ray to assess for infiltrate. -- Chest x-ray was interpreted by radiology: Negative. Results were discussed with patient. Plan for supportive treatment and outpatient follow-up. Patient does not have a primary care physician as she knows she had some difficulty getting her medical records transferred. I will ask care management to assist in arranging primary care in the area for her. HPI General Mode of arrival: ambulatory. Date/Time Provider Initiated Documentation: 07/14/21 15:23. Limitations to Documentation: no limitations. Information obtained by: patient. HPI Narrative: 30-year-old female smoker here with chief complaint of chest discomfort. Patient notes right-sided chest discomfort started couple days ago and has persisted. Pain is worse with cough and certain movements of her right and certain positions. Patient notes cough is not present intermittently for the past month. She notes that she feels congested. Cough is productive. She notes that her son was recently diagnosed with a respiratory illness and was hospitalized at [facility] for this. He is concerned that she has same viral infection. Patient did have COVID remotely December 2020. Related Data Home Medications Medication Instructions Recorded Confirmed Unknown [No Known Home Meds] 07/14/21 07/14/21 Allergies Allergy/AdvReac Type Severity Reaction Status Date / Time No Known Allergies Allergy Unverified 07/14/21 14:33 General Stated Complaint: Chest/Rib KAITY: 4 Review of Systems All systems reviewed & are unremarkable except as noted in HPI and below Constitutional Constitutional: Denies fever(s) ENT Comments: sinus congestion Cardiovascular Cardiovascular: Reports as per HPI and Denies dyspnea Respiratory Respiratory: Reports chest congestion, Reports cough and Denies dyspnea PFSH All Active Problems (Updated 07/14/21 @ 17:06 by Wisam Nettles MD) Acute viral syndrome (Acute) Right-sided chest wall pain (Acute) Cough (Acute) Bronchitis (Acute) Encounter for management and injection of depo-Provera (Acute) Encounter for assessment (Acute) Postoperative wound seroma (Acute) Yeast dermatitis (Acute) History of primary section (Acute) Arrested labor (Acute) Prolonged labor with first (Acute) Prolonged latent phase of labor (Acute) 40 weeks gestation of (Acute) History of drug dependence/abuse (Acute) ADHD (Acute) LGSIL of cervix of undetermined significance (Acute) (Acute) Adjustment disorder with mixed anxiety and depressed mood (Acute) Medical History 17 weeks gestation of Dysuria False labor after 37 completed weeks of gestation Opioid abuse Currently dosing daily with 1mg suboxone that she buys off street Size of fetus inconsistent with dates in third trimester Family History Paternal Grandfather H/O heart artery stent Paternal Grandmother Hypertension Maternal Grandfather Heart disease Maternal Grandmother Alcohol abuse @ 54 Social History Smoking/Tobacco Use Status: Current every day Tobacco Type: cigarettes Tobacco: How many years used: 4 Quit status: considering quitting Smoking risk assessment performed?: Yes Alcohol Intake: current Alcohol Intake frequency: holidays/special occasions only Details: stopped w/ knowledge of . Drug use: Daily Substance use type: marijuana Do you feel safe at home: Yes Do you feel safe in your relationship?: Yes Female Reproductive History Menstrual Age of Menarche: 12 control method: none History History 1 Para 0 Hx # Term Pregnancies 1 Multiple births 0 Hx # Pregnancies 0 Ectopic pregnancies 0 AB induced 0 Hx Number of Living Children 0 AB spontaneous 0 Past Pregnancies Del. Date GA/Weeks # Outcome Route Wgt Sex Labor Lgth Anesthesia Location Prov Complic 12/12/19 40 No Successful 3770.[address] Henderson Exam Const General: cooperative and no acute distress HENMT Mouth: moist mucous membranes Eyes Conjunctivae: normal conjunctivae Sclera: normal sclerae EOM: EOM intact bilaterally Neck Neck: trachea midline Resp Auscultation: clear to auscultation bilaterally, diminished lung sounds on the right, no rales, rhonchi right lower, no wheezes and other Cardio Rate: regular rate and not tachycardic Rhythm: regular rhythm Heart Sounds: no gallops, no murmurs and no rubs Skin General skin exam: no rashes or lesions noted Neuro General: patient alert, patient awake and tone normal Extrem General: no edema Course Vital Signs Vital signs: Vital Signs Temperature 36.4 C L 07/14/21 14:28 Pulse 76 07/14/21 14:28 Respiratory Rate 16 07/14/21 14:28 Blood Pressure 109/64 07/14/21 14:28 Pulse Oximetry 97 07/14/21 14:28 Temperature 36.4 C L 07/14/21 14:28 Temperature Source Skin 07/14/21 14:28 Pulse 76 07/14/21 14:28 Respiratory Rate 16 07/14/21 14:28 Respiratory Effort 07/14/21 14:33 Blood Pressure 109/64 07/14/21 14:28 Blood Pressure Position Sitting 07/14/21 14:28 Pulse Oximetry 97 07/14/21 14:28 Oxygen Delivery Method Room Air 07/14/21 14:28 Oxygen Flow Rate 0 07/14/21 14:28 Pain Level 4 07/14/21 14:28
--- NOTE | 2021-07-14 17:09 | NUR.NOTE ---
Nursing Note: Referral given to Care Management needs PCP, establish care, routine follow up. Bernarda Robertson
[2021-07-16 11:11] LABS: COVID-19 RT-PCR UVMMC Result Negative (Negative)
== END 2021-07-14 17:09 | disposition home or self-care (01) ==
PROVIDERS: Emergency Provider Student in an Organized Health Care Education/Training Program
DX: R07.89 Other chest pain (principal); J20.9 Acute bronchitis, unspecified; Z86.16 Personal history of COVID-19; R05.1 Acute cough; Z20.822 Contact with and (suspected) exposure to COVID-19
CPT/HCPCS: 99283; U0003; 71046

== ENCOUNTER 2021-12-23 15:09 | Outpatient (REF) | payer MEDICAID, SELFPAY ==
--- NOTE | 2021-12-23 14:30 | PAPFT_PTH ---
PATIENT: Ana Ray LOC: [facility] U#:[id number] AGE/SX: 31/F ROOM: RE12/23/[address]: Nichole Wright MD : 1990 BED: DIS: 12/23/2021 SPEC #: [id number] RECD: 12/23/21 18:13 STATUS: TRACEY REQ #: [id number] CELINE: 12/23/21 14:[address]: Nichole Wright [facility] Cytology RECD BY: Sandi Lam Tissues: 1 - CX/ENDOCX FOR PAP SMEARS Procedures: PAP THIN PREP/UVM Screening HPV DNA PROBE Comments: [id number] (CHLAMYDIA/GC) (HPV 16 & 18/45)
[2021-12-24 14:46] LABS: Chlamydia Result Negative (Negative); GC Result Negative (Negative)
== END 2021-12-23 15:10 | disposition home or self-care (01) ==
LOC: LBN 15:09
PROVIDERS: Visit Provider Obstetrics & Gynecology
DX: Z12.4 Encounter for screening for malignant neoplasm of cervix (principal); Z11.51 Encounter for screening for human papillomavirus (HPV); R87.810 Cervical high risk human papillomavirus (HPV) DNA test positive; Z11.3 Encounter for screening for infections with a predominantly sexual mode of transmission
CPT/HCPCS: 87491; 87591; 88142; 87624

== ENCOUNTER 2022-04-12 10:29 | Emergency (ER) | payer MEDICAID, SELFPAY ==
[2022-04-12 10:35] VITALS: BP 123/74; PULSE 103; RESP 17; TEMP 36.4; O2SAT 97
[2022-04-12] MEDS: Dexamethasone 10 MG/ML VIAL PO (11:00)
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
== END 2022-04-12 11:19 | disposition home or self-care (01) ==
PROVIDERS: Emergency Provider Nurse Practitioner Family; PCP Student in an Organized Health Care Education/Training Program
DX: J06.9 Acute upper respiratory infection, unspecified (principal); F17.200 Nicotine dependence, unspecified, uncomplicated; Z86.16 Personal history of COVID-19
CPT/HCPCS: 99283; 99284; J1100

== ENCOUNTER 2022-07-07 11:32 | Outpatient (REF) | payer MEDICAID, SELFPAY ==
--- NOTE | 2022-07-07 11:30 | ENDO_PTH ---
PATIENT: Ana Ray LOC: [facility] U#:[id number] AGE/SX: 31/F ROOM: RE07/07/[address]: Tanya Henderson DO : 1990 BED: DIS: 07/07/2022 SPEC #: [id number] RECD: 07/07/22 13:09 STATUS: TRACEY REQ #: [id number] CELINE: 07/07/22 11:[address]: Tanya Henderson DEPT: Surgical Specimen RECD BY: Sandi Lam ENTERED: 07/07/22 13:10 SP TYPE: Endo OTHR DR: Shanique Walls DO Tissues: 1 - ENDOCERVICAL BX/CURRETTE Procedures: GROSS AND MICRO LEVEL 4 Comments: [id number]
== END 2022-07-07 11:33 | disposition home or self-care (01) ==
LOC: LBN 11:32
PROVIDERS: PCP Student in an Organized Health Care Education/Training Program; Visit Provider Obstetrics & Gynecology
DX: N88.8 Other specified noninflammatory disorders of cervix uteri (principal); R87.810 Cervical high risk human papillomavirus (HPV) DNA test positive
CPT/HCPCS: 88305

== ENCOUNTER 2023-03-11 16:09 | Emergency (ER) | payer MEDICAID, SELFPAY ==
[2023-03-11 16:19] VITALS: BP 135/84; PULSE 98; RESP 16; TEMP 36.9; O2SAT 98
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
[2023-03-11] MEDS: Ketorolac 15 MG/ML VIAL IM (16:50)
[2023-03-11] MEDS: Dexamethasone 4 MG TAB 10 MG PO (16:52)
[2023-03-11 17:59] VITALS: BP 128/66; PULSE 101; RESP 18; O2SAT 98
== END 2023-03-11 18:00 | disposition home or self-care (01) ==
PROVIDERS: Emergency Provider Student in an Organized Health Care Education/Training Program; PCP Student in an Organized Health Care Education/Training Program
DX: R07.0 Pain in throat (principal); H92.01 Otalgia, right ear
CPT/HCPCS: 87880; 96372; 99283; 87081; J1885; J8540

== ENCOUNTER 2023-05-11 10:00 | Emergency (ER) | payer MEDICAID, SELFPAY ==
[2023-05-11 10:02] VITALS: BP 136/80; PULSE 96; RESP 20; TEMP 36.6; O2SAT 98
[2023-05-11 10:09] VITALS: BP 136/80; PULSE 96; RESP 20; TEMP 36.6; O2SAT 98
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
[2023-05-11] MEDS: Benzonatate 100 MG CAP PO (10:34)
[2023-05-11] MEDS: Dexamethasone 4 MG TAB PO (10:34)
--- NOTE | 2023-05-11 10:44 | DI.RAD_ITS ---
Exam(s) XR CHEST 2V PA LATERAL EXAM: XR CHEST 2V PA LATERAL CLINICAL HISTORY: URI, Cough TECHNIQUE: 2D digital imaging was performed. Two views. COMPARISON: CR XR CHEST 2V PA LATERAL from 07/14/2021 FINDINGS: HEART: Normal size. Aorta: Not dilated. PULMONARY VASCULATURE: Normal. LUNGS: Increased streaky densities noted in the right middle lobe adjacent to the heart border suspic ious for pneumonia. PLEURAL SPACE: No pleural effusion or pneumothorax. BONE:Unremarkable for age. Soft tissues: Unremarkable. IMPRESSION: Right middle lobe infiltrate. DATA REPOSITORY: RADIATION DOSE DELIVERED:
[2023-05-11 11:08] LABS: COVID-19 PCR Negative (Negative); Influenza A PCR Negative (Negative); Influenza B PCR Negative (Negative); RSV PCR Negative (Negative)
[2023-05-11] MEDS: Doxycycline Hyclate 100 MG CAP PO (11:08)
[2023-05-11 11:14] LABS: Source Nasopharynx
[2023-05-11 11:32] VITALS: BP 112/79; PULSE 78; RESP 16; O2SAT 98
== END 2023-05-11 11:32 | disposition home or self-care (01) ==
PROVIDERS: Emergency Provider Registered Nurse Emergency; PCP Student in an Organized Health Care Education/Training Program
DX: J18.9 Pneumonia, unspecified organism (principal); F17.290 Nicotine dependence, other tobacco product, uncomplicated; Z11.52 Encounter for screening for COVID-19
CPT/HCPCS: 81025; 87637; 99284; 71046; J8540

== ENCOUNTER 2023-10-04 01:55 | Outpatient (CLI) | payer MEDICAID, SELFPAY ==
--- NOTE | 2023-10-04 07:15 | DI.US_ITS ---
Exam(s) US SOFT TISSUE EXTREMITY EXAM: US SOFT TISSUE EXTREMITY CLINICAL HISTORY: evaluate cyst vs bony path vs nodular growth,ganglion cyst, pain,m79.672,. TECHNIQUE: Ultrasound was performed using standard protocol. COMPARISON: No exams were available for comparison FINDINGS: Sonographic assessment utilizing grayscale and color Doppler imaging was performed and targeted to th e area of clinical concern. There is a 0.7 x 0.4 x 1.0 cm simple cyst in the subcutaneous tissues along the lateral aspect of the left foot. This corresponds to the palpable abnormality. Differential considerations include benig n type cysts such as sebaceous cyst, ganglion or synovial cyst. IMPRESSION: DATA REPOSITORY:
--- NOTE | 2023-10-04 07:15 | DI.RAD_ITS ---
Exam(s) XR FOOT LT COMPLETE EXAM: XR FOOT LT COMPLETE CLINICAL HISTORY: evaluate bony path vs cyst vs nodule,ganglion cyst,m67.40. TECHNIQUE: 2D digital imaging was performed. COMPARISON: No exams were available for comparison FINDINGS: No evidence of fracture or diastasis of the Lisfranc joint. Bone density is normal. No osseous lesi ons nor erosions evident. No degenerative changes. Great toe metatarsophalangeal joint appears unre markable. No abnormal soft tissue findings. IMPRESSION: No significant osseous findings in the foot. DATA REPOSITORY: RADIATION DOSE DELIVERED:
== END 2023-10-04 02:15 ==
LOC: DI 01:55
PROVIDERS: PCP Student in an Organized Health Care Education/Training Program; Visit Provider Student in an Organized Health Care Education/Training Program
DX: M79.672 Pain in left foot; M67.472 Ganglion, left ankle and foot
CPT/HCPCS: 76881; 73630

== ENCOUNTER 2023-10-06 05:12 | Outpatient (CLI) | payer MEDICAID, SELFPAY ==
[2023-10-06] MEDS: Inhaler, Assist Device 1 EACH MC (09:32)
[2023-10-06] MEDS: Levalbuterol HFA 15 GM INH 4 PUFF IH (09:32)
--- NOTE | 2023-10-10 15:38 | W.PFT ---
Date of service: 10/06/23 Time of Service: 08:00 Pulmonary Function Test Result Indications: Bronchitis Impression Spirometry shows decreased FEV1/FVC 69%. Normal FEV1 at 89%. No reversibility after bronchodilator. Lung volumes with no air trapping. Normal DLCO. Normal flow volume loop. Clinical Correlation therefore is recommended.
== END 2023-10-06 05:13 | disposition home or self-care (01) ==
LOC: RT 05:12
PROVIDERS: PCP Student in an Organized Health Care Education/Training Program; Visit Provider Student in an Organized Health Care Education/Training Program
DX: J40 Bronchitis, not specified as acute or chronic
CPT/HCPCS: 00123; 94060; 94726; 94729

== ENCOUNTER 2023-10-11 02:04 | Outpatient (CLI) | payer MEDICAID, SELFPAY ==
[2023-10-11 11:17] LABS: Abs Immature Grans 0.02 10^3/uL (0.0-0.06); Absolute Basophil Count 0.05 10^3/uL (0.0-0.2); Absolute Eosinophil Count 0.16 10^3/uL (0.0-0.7); Absolute Lymphocyte Count 1.64 10^3/uL (1.2-3.4); Absolute Neutrophil Count 4.09 10^3/uL (1.2-6.7); Basophils % 0.8 %; Eosinophils % 2.5 %; HCT 37.9 % (36.0-46.0); HGB 12.5 g/dL (11.2-15.7); Immature Grans % 0.3 %; Lymphocytes % 25.8 %; MCH 29.2 pg (27.0-33.0); MCV 89 fL (80-95); MPV 9.8 fL (8.0-11.0); Monocytes % 6.3 %; Neutrophils % 64.3 %; Platelet Count 299 10^3/uL (130-400); RBC 4.28 10^6/uL (3.93-5.22); RDW 12.1 % (11.7-14.6); RDW-SD 39.3 fL; WBC 6.36 10^3/uL (4.4-10.8)
[2023-10-11 12:06] LABS: Calculated LDL 108 mg/dL (<100); Cholesterol 181 mg/dL (<200); HDL Cholesterol 63 mg/dL (40-60); Magnesium 1.8 mg/dL (1.8-2.4); Triglyceride 50 mg/dL (<150)
== END 2023-10-11 02:05 | disposition home or self-care (01) ==
LOC: LBO 02:04
PROVIDERS: PCP Student in an Organized Health Care Education/Training Program; Referring Provider Student in an Organized Health Care Education/Training Program; Visit Provider Student in an Organized Health Care Education/Training Program
DX: J40 Bronchitis, not specified as acute or chronic (principal); Z86.2 Personal history of diseases of the blood and blood-forming organs and certain disorders involving the immune mechanism; B99.9 Unspecified infectious disease; Z91.89 Other specified personal risk factors, not elsewhere classified; Z13.220 Encounter for screening for lipoid disorders
CPT/HCPCS: 36415; 80061; 83735; 85025

== ENCOUNTER 2023-10-30 11:47 | Emergency (ER) | payer MEDICAID, SELFPAY ==
[2023-10-30 11:52] VITALS: BP 121/68; PULSE 120; RESP 16; TEMP 37.2; O2SAT 99
--- NOTE | 2023-10-30 12:15 | DI.RAD_ITS ---
Exam(s) XR TOE LT FIFTH EXAM: XR TOE LT FIFTH CLINICAL HISTORY: pain post stub injury. TECHNIQUE: 2D digital imaging was performed. Three images were obtained. COMPARISON: CR XR FOOT LT COMPLETE from 10/04/2023 FINDINGS: BONES: No acute fracture is present. No bony destructive lesion is seen. JOINTS: No dislocation present. SOFT TISSUE: Normal. IMPRESSION: No evidence of acute fracture, dislocation, or subluxation. DATA REPOSITORY: RADIATION DOSE DELIVERED:
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
== END 2023-10-30 13:25 | disposition home or self-care (01) ==
PROVIDERS: Emergency Provider Physician Assistant; PCP Student in an Organized Health Care Education/Training Program
DX: S99.822A Other specified injuries of left foot, initial encounter (principal); F17.290 Nicotine dependence, other tobacco product, uncomplicated; W22.8XXA Striking against or struck by other objects, initial encounter; Y93.01 Activity, walking, marching and hiking; Y92.89 Other specified places as the place of occurrence of the external cause
CPT/HCPCS: 99283; 73660

== ENCOUNTER 2024-02-03 15:14 | Outpatient (REF) | payer MEDICAID, SELFPAY ==
--- NOTE | 2024-02-03 15:10 | PAPFT_PTH ---
PATIENT: Ana Ray LOC: [facility] U#:[id number] AGE/SX: 33/F ROOM: RE02/03/[address]: Tanya Henderson DO : 1990 BED: DIS: 02/03/2024 SPEC #: [id number] RECD: 02/03/24 16:28 STATUS: TRACEY REQ #: [id number] CELINE: 02/03/24 15:[address]: Tanya Henderson DEPT: [facility] Cytology RECD BY: Sandi Lam ENTERED: 02/03/24 16:29 SP TYPE: PAPFT OTHR DR: Shanique Walls DO Tissues: 1 - CX/ENDOCX FOR PAP SMEARS Procedures: PAP THIN PREP/[facility] Screening HPV DNA PROBE Comments: [id number] (HPV 16 & 18/45)
== END 2024-02-03 15:15 | disposition home or self-care (01) ==
LOC: LBN 15:14
PROVIDERS: PCP Student in an Organized Health Care Education/Training Program; Visit Provider Obstetrics & Gynecology
DX: Z12.4 Encounter for screening for malignant neoplasm of cervix (principal); Z72.51 High risk heterosexual behavior
CPT/HCPCS: 88142; 87624

== ENCOUNTER 2024-04-13 13:42 | Outpatient (REF) | payer MEDICAID, SELFPAY ==
--- NOTE | 2024-04-13 13:40 | ENDO_PTH ---
PATIENT: Ana Ray LOC: [facility] U#:[id number] AGE/SX: 33/F ROOM: RE04/13/[address]: Tanya Henderson DO : 1990 BED: DIS: 04/13/2024 SPEC #: [id number] RECD: 04/13/24 16:57 STATUS: TRACEY REQ #: [id number] CELINE: 04/13/24 13:[address]: Tanya Henderson DEPT: Surgical Specimen RECD BY: Sandi Lam ENTERED: 04/13/24 16:57 SP TYPE: Endo OTHR DR: Tiffany Mejia APRN Tissues: 1 - ENDOCERVICAL BX/CURRETTE Procedures: GROSS AND MICRO LEVEL 4 Comments: [id number]
== END 2024-04-13 13:43 | disposition home or self-care (01) ==
LOC: LBN 13:42
PROVIDERS: PCP Nurse Practitioner; Visit Provider Obstetrics & Gynecology
DX: D26.0 Other benign neoplasm of cervix uteri (principal); R10.9 Unspecified abdominal pain; E16.2 Hypoglycemia, unspecified; M54.50 Low back pain, unspecified
CPT/HCPCS: 88305

== ENCOUNTER 2024-09-05 14:16 | Outpatient (CLI) | payer MEDICAID, SELFPAY ==
--- NOTE | 2024-09-05 13:15 | DI.RAD_ITS ---
Exam(s) XR FOOT LT COMPLETE EXAM: XR FOOT LT COMPLETE CLINICAL HISTORY: Base of the 4th and 5th metacarpal bone exostosis,m89.8x9. TECHNIQUE: 2D digital imaging was performed. COMPARISON: CR XR FOOT LT COMPLETE from 10/04/2023 CR XR TOE LT FIFTH from 10/30/2023 FINDINGS: 3 views No evidence of fracture nor diastasis of the Lisfranc joint. Great toe metatarsophalangeal joint appears unremarkable as do the subjacent sesamoid bones. Bone density normal. No osseous lesions nor erosions. No pes planus. No inferior calcaneal spur nor enthesophytes. IMPRESSION: No significant osseous findings in the left foot. DATA REPOSITORY: RADIATION DOSE DELIVERED:
== END 2024-09-05 14:36 ==
LOC: DI 14:24
PROVIDERS: PCP Nurse Practitioner; Visit Provider Podiatrist
DX: M89.8X7 Other specified disorders of bone, ankle and foot (principal)
CPT/HCPCS: 73630

== ENCOUNTER 2024-10-29 13:38 | Emergency (ER) | payer MEDICAID, SELFPAY ==
[2024-10-29 13:53] VITALS: BP 116/77; PULSE 92; RESP 18; TEMP 36.8; O2SAT 95
--- NOTE | 2024-10-29 14:00 | DI.US_ITS ---
Exam(s) US LOWER EXTREMITY VENOUS LT EXAM: US LOWER EXTREMITY VENOUS LT CLINICAL HISTORY: left calf pain 2 weeks. TECHNIQUE: Lower extremity venous ultrasound performed using grayscale, color- flow, and spectral Doppler analysis. COMPARISON: No exams were available for comparison FINDINGS: The common femoral, femoral and popliteal veins demonstrate normal compressibility, augmentation, and color Doppler. The posterior tibial and peroneal veins are patent. No saphenous vein thrombosis or other superficial venous thrombosis is seen. No hematoma or Wilkinson's cyst is seen. IMPRESSION: Negative lower extremity ultrasound. No evidence of DVT. DATA REPOSITORY:
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
[2024-10-29 14:12] VITALS: RESP 14
[2024-10-29 14:30] LABS: Abs Immature Grans 0.01 10^3/uL (0.0-0.06); HCT 38.6 % (36.0-46.0); HGB 12.9 g/dL (11.2-15.7); Immature Grans % 0.2 %; MCH 28.4 pg (27.0-33.0); MCHC 33.4 % (32.0-36.0); MCV 85 fL (80-95); MPV 9.7 fL (8.0-11.0); Platelet Count 329 10^3/uL (130-400); RBC 4.54 10^6/uL (3.93-5.22); RDW 11.5 % (11.7-14.6); RDW-SD 35.3 fL; WBC 6.49 10^3/uL (4.4-10.8)
[2024-10-29 14:47] LABS: ALT 22 U/L (14-59); AST 18 U/L (15-37); Albumin 4.2 g/dL (3.4-5.0); Alkaline Phosphatase 74 U/L (46-116); Anion Gap 6.1 mmol/L (3-11); BUN 11 mg/dL (7-18); Bilirubin, Total 0.3 mg/dL (0.2-1.0); CO2 31.9 mmol/L (21.0-32.0); Calcium 9.5 mg/dL (8.5-10.1); Chloride 101 mmol/L (98-107); Creatine Kinase 75 U/L (26-192); Estimated GFR 117.04 (mL/min/1.73m2); Glucose 100 mg/dL (74-106); INR 1.0 (0.9-1.1); Magnesium 1.9 mg/dL (1.8-2.4); PTT Activated 24.8 sec (20.6-30.2); Potassium 3.8 mmol/L (3.5-5.1); Prothrombin Time 9.8 sec (9.1-11.1); Sodium 139 mmol/L (136-145); Total Protein 7.9 g/dL (6.4-8.2)
--- NOTE | 2024-10-29 15:02 | NUR.NOTE ---
Nursing Note:Patients belongings in [facility] locker
[2024-10-29 15:31] VITALS: BP 107/67; PULSE 61; RESP 16; O2SAT 100
[2024-10-30 11:04] LABS: Lyme Ab w Rflx to Lyme Confirm Negative (Negative)
[2024-10-31 13:51] LABS: B. miyamotoi PCR Negative (Negative); Babesia divergens/MO-1 Negative (Negative); Ehrlichia muris eauclairensis Negative (Negative)
== END 2024-10-29 15:32 | disposition home or self-care (01) ==
PROVIDERS: Emergency Provider Emergency Medicine; PCP Nurse Practitioner
DX: M79.662 Pain in left lower leg (principal)
CPT/HCPCS: 99283 ×2; 36415; 80053; 82550; 87798; 83735; 85025; 85610; 85730; 86618; 93971

== ENCOUNTER 2024-12-19 23:02 | Emergency (ER) | payer MEDICAID, SELFPAY ==
--- NOTE | 2024-12-19 00:06 | DI.CT_ITS ---
Exam(s) CT ABDOMEN PELVIS W EXAM: CT ABDOMEN PELVIS W CLINICAL HISTORY: severe pelvic pain, eval for cyst/appe. TECHNIQUE: Imaging Protocol: Axial computed tomography images with coronal and sagittal reformatted images were created and reviewed CONTRAST MATERIAL: Intravenous: Omnipaque-350 75cc Oral: None COMPARISON: No exams were available for comparison FINDINGS: VISUALIZED LUNG BASES: No nodules nor pleural effusions evident. ABDOMEN: There is no ascites. LIVER: There are no focal hepatic lesions evident. No dilated intrahepatic ducts. GALLBLADDER/BILIARY: No obvious gallbladder pathology. CBD is not dilated. PANCREAS: No evidence of pancreatic mass nor dilatation of the pancreatic duct. SPLEEN: Spleen is not enlarged. No obvious intrasplenic lesions. Splenic and portal veins are patent. ADRENALS: There are no significant adrenal masses. KIDNEYS:No cysts evident. No solid renal masses. No calculi nor hydronephrosis.. ABDOMINAL AORTA: Abdominal aorta is not enlarged. LYMPH NODES:There is no retroperitoneal nor paraaortic adenopathy. ABDOMINAL WALL: No evidence of significant anterior abdominal wall nor inguinal hernia. GI: There is no evidence of bowel obstruction, free air, nor abscess. PELVIS: GI: No evidence of appendicitis.No evidence of sigmoid diverticulitis. LYMPH NODES: There is no intrapelvic nor inguinal adenopathy. REPRODUCTIVE: Uterus and ovaries appear age-appropriate. There no extraovarian adnexal masses and no free fluid in the pelvis. URINARY BLADDER: There is mild uniform thickening of the urinary bladder wall. No distinct bladder masses nor radiopaque calculi in the bladder lumen. OSSEOUS: No fractures and no significant osseous lesions. IMPRESSION: 1. There is mild uniform thickening of the urinary bladder wall. Possibly due to under distension. Cannot exclude cystitis. Correlation with clinical findings and appropriate testing recommended. 2. No evidence of appendicitis nor diverticulitis nor pancreatitis. 3. Ovaries appear age-appropriate. No dominant Flector cysts nor hemorrhagic cysts. No extraovarian adnexal masses and no free fluid in the pelvis. Preliminary V rad report was reviewed. RADIATION DOSE DELIVERED: 406.02mGy.cm Total DLP DATA REPOSITORY: All CT scans at this facility are submitted to the National Radiology Data Registry (NRDR) Dose Index Registry (DIR) with the [employer] ([employer]). RADIATION OPTIMIZATION: All CT scans at this facility use at least one of these dose optimization techniques: automated exposure control; mA and/or kV adjustment per patient size (includes targeted exams where dose is matched to clinical indication); or iterative reconstruction.
[2024-12-19 23:15] VITALS: BP 129/80; PULSE 121; RESP 18; TEMP 38.1; O2SAT 100
[2024-12-19 23:18] LABS: Abs Immature Grans 0.03 10^3/uL (0.0-0.06); HCT 38.2 % (36.0-46.0); HGB 12.6 g/dL (11.2-15.7); Immature Grans % 0.3 %; MCH 28.3 pg (27.0-33.0); MCHC 33.0 % (32.0-36.0); MCV 86 fL (80-95); MPV 9.8 fL (8.0-11.0); Platelet Count 250 10^3/uL (130-400); RBC 4.46 10^6/uL (3.93-5.22); RDW 11.8 % (11.7-14.6); RDW-SD 36.8 fL; WBC 9.36 10^3/uL (4.4-10.8)
[2024-12-19 23:26] VITALS: PULSE 119; RESP 20; TEMP 38.1; O2SAT 100
[2024-12-19] MEDS: Ondansetron 4 MG/2 ML VIAL IVP (23:29)
[2024-12-19] MEDS: ACETAMINOPHEN 1,000 MG/100 ML BAG 400 MG IVPB (23:29)
[2024-12-19] MEDS: Lactated Ringers 1,000 ML 1000 ML IV (23:29)
[2024-12-19] MEDS: Ketorolac 30 MG/ML VIAL IVP (23:29)
[2024-12-19 23:31] LABS: Glucose Negative (Negative)
[2024-12-19 23:39] LABS: ALT 22 U/L (14-59); AST 16 U/L (15-37); Albumin 4.3 g/dL (3.4-5.0); Alkaline Phosphatase 72 U/L (46-116); Anion Gap 8.7 mmol/L (3-11); BUN 10 mg/dL (7-18); Bilirubin, Total 0.5 mg/dL (0.2-1.0); CO2 29.3 mmol/L (21.0-32.0); Calcium 9.6 mg/dL (8.5-10.1); Chloride 102 mmol/L (98-107); Glucose 100 mg/dL (74-106); Lipase 37 U/L (<78); Potassium 3.4 mmol/L (3.5-5.1); Sodium 140 mmol/L (136-145); Total Protein 8.2 g/dL (6.4-8.2)
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
[2024-12-19 23:41] LABS: RBC 0-2 HPF (0-2); WBC 0-2 HPF (0-5)
[2024-12-20] MEDS: Omnipaque 350 MG/ML 100 ML BTL IJ (00:04)
[2024-12-20] MEDS: Normal Saline Flush 10 ML SYR IVP (00:05)
[2024-12-20] MEDS: Normal Saline - Diluent 50 ML VIAL IJ (00:05)
[2024-12-20 00:13] LABS: COVID-19 PCR Negative (Negative); RSV PCR Negative (Negative)
--- NOTE | 2024-12-20 00:23 | DI.VRAD_ITS ---
PROCEDURE INFORMATION: Exam: CT Abdomen And Pelvis With Contrast Exam date and time: 12/19/2024 11:34 PM Age: 34 years old Clinical indication: Abdominal pain; Severe pelvic pain, eval for cyst/appe TECHNIQUE: Imaging protocol: Computed tomography of the abdomen and pelvis with contrast. Radiation optimization: All CT scans at this facility use at least one of these dose optimization techniques: automated exposure control; mA and/or kV adjustment per patient size (includes targeted exams where dose is matched to clinical indication); or iterative reconstruction. Contrast material: [id number]; Contrast volume: 75 ml; Contrast route: INTRAVENOUS (IV); COMPARISON: US OB DYLON WEIGHT 11/20/2019 8:04 AM FINDINGS: Lungs: Lung bases are clear. Liver: The liver has a normal appearance. Gallbladder and biliary ducts: The gallbladder is unremarkable. No biliary ductal dilatation. Pancreas: The pancreas demonstrates normal size. No pancreatic ductal dilatation. Spleen: The spleen demonstrates normal size. Adrenal glands: The adrenal glands have a normal appearance. Kidneys and ureters: The kidneys are normal in size. No hydronephrosis. No hydroureter or ureterolithiasis. Stomach and bowel: The bowel demonstrates overall normal caliber and wall thickness. Appendix: The appendix is thin walled. Intraperitoneal space: Unremarkable. No free air. No significant fluid collection. Vasculature: The IVC and aorta have a normal appearance. Lymph nodes: No enlarged lymph nodes. Urinary bladder: The bladder is thin walled and fluid filled. Reproductive: The uterus has a normal appearance. Bones/joints: Bones have a normal appearance. No acute fracture or suspicious bone lesion. Soft tissues: Unremarkable. IMPRESSION: 1. No acute intra-abdominal findings. 2. Normal appendix. Dictated and Authenticated by: Annetta Park MD. Orderin Rebeca Schmid MD
[2024-12-20 01:43] VITALS: PULSE 98; RESP 18; O2SAT 100
--- NOTE | 2024-12-22 09:16 | NUR.NOTE ---
Accessed Pt chart to document antibiotics given for the Specimen Report, none were prescribed. Gave report to Providers.
== END 2024-12-20 01:44 | disposition home or self-care (01) ==
PROVIDERS: Emergency Provider Student in an Organized Health Care Education/Training Program; PCP Nurse Practitioner
DX: R10.9 Unspecified abdominal pain (principal)
CPT/HCPCS: 99284; 99285; 81025; 96375; 80053; 83690; 87040; 87637; 96365; 74177; 81003; 81015; 83605; 85025; 87086; J0131; J1885; J2405; J3490

== ENCOUNTER 2024-12-28 15:59 | Outpatient (REF) | payer MEDICAID, SELFPAY ==
[2024-12-31 11:55] LABS: Chlamydia Result Negative (Negative); GC Result Negative (Negative)
== END 2024-12-28 16:00 | disposition home or self-care (01) ==
LOC: LBN 15:59
PROVIDERS: PCP Nurse Practitioner; Visit Provider Advanced Practice Midwife
DX: N94.6 Dysmenorrhea, unspecified
CPT/HCPCS: 87491; 87591; 87480; 87510; 87660